=== PATIENT | female | born 1985 | race Two or more races ===

== ENCOUNTER 2016-06-10 11:27 | Emergency (ER) | payer OTHER ==
[~2016-06-10] VITALS: Ht 162.6 cm; Wt 73.5 kg
[~2016-06-10 11:27] MED LIST: ALBU8HFA IH; DILT120C48 PO; FURO80 PO; INSLAN SQ; LINA5TAB PO; METO5TAB95 PO
[2016-06-10 12:01] LABS: GLUCOSE,POINT OF CARE 298 MG/DL (70-110)
[2016-06-10] MEDS ORDERED: ONDANSETRON HCL 4 MG/2 ML VIAL IVP ONE ×2 (12:45→15:30)
[2016-06-10] MEDS ORDERED: SODIUM CHLORIDE 0.9% 1,000 ML IV ONE (12:45)
[2016-06-10] MEDS ORDERED: MORPHINE SULFATE 4 MG/ML SYRINGE IVP ONE ×2 (13:00→14:45)
[2016-06-10 13:08] LABS: BASOPHILS % (AUTO) 0.2 % (0.0-2.0); EOSINOPHILS % (AUTO) 0.1 % (1.0-6.0); HEMATOCRIT 31.8 % (36-46); HEMOGLOBIN 10.4 g/dL (12.0-16.0); LYMPHOCYTES # (AUTO) 1.8 K/uL (1.0-4.8); LYMPHOCYTES % (AUTO) 13.2 % (22.0-44.0); MEAN CORPUSCULAR HEMOGLOBIN 26.4 pg (26.0-34.0); MEAN CORPUSCULAR HGB CONC 32.8 G/dL (31.0-37.0); MEAN CORPUSCULAR VOLUME 81 fL (80-100); MONOCYTES # (AUTO) 0.1 K/uL (0.1-1.0); MONOCYTES % (AUTO) 0.6 % (2.0-9.0); NEUTROPHILS # (AUTO) 11.8 K/uL (1.8-7.7); PLATELET COUNT (AUTO) 541 K/uL (150-450); RED BLOOD CELL COUNT(AUTO) 3.94 MIL/uL (4.00-5.20); RED CELL DISTRIBUTION WIDTH 14.3 % (11.5-14.5); WHITE BLOOD COUNT (AUTO) 13.7 K/uL (4.5-11.0)
[2016-06-10 13:09] LABS: NEUTROPHILS % (AUTO) 85.9 % (40.0-70.0)
[2016-06-10 13:18] LABS: CALCIUM, TOTAL 8.8 mg/dL (8.8-10.5); CREATININE 4.28 mg/dL (0.60-1.30); POTASSIUM 4.3 mmol/L (3.5-5.1)
[2016-06-10 13:24] LABS: ALBUMIN 1.3 g/dL (3.4-5.0); BILIRUBIN,TOTAL 0.2 mg/dL (0.1-1.0); TOTAL PROTEIN, SERUM 6.8 g/dL (6.4-8.2)
[2016-06-10 13:32] LABS: RBC MORPHOLOGY COMMENT NORMAL RBC MORPH
[2016-06-10] MEDS ORDERED: LABETALOL HCL 5 MG/ML 20 ML VIAL IVP ONE (14:00)
[2016-06-10] MEDS ORDERED: SODIUM CHLORIDE 0.9% 500 ML IV ONE (14:45)
[2016-06-10 16:11] LABS: GLUCOSE,POINT OF CARE 331 MG/DL (70-110)
[2016-06-10] MEDS ORDERED: INSULIN REGULAR, HUMAN 100 UNITS/ML IVP ONE (16:15)
[2016-06-10] MEDS ORDERED: METOCLOPRAMIDE HCL 5 MG/ML 2 ML VIAL IVP ONE (17:30)
[2016-06-10 17:40] VITALS: BP 159/89
== END 2016-06-10 18:05 | disposition home or self-care (01) ==
LOC: EMS 11:29
DX: R11.2 Nausea with vomiting, unspecified (principal); E86.0 Dehydration; I10 Essential (primary) hypertension; G89.18 Other acute postprocedural pain; R05 Cough; E11.29 Type 2 diabetes mellitus with other diabetic kidney complication; E11.40 Type 2 diabetes mellitus with diabetic neuropathy, unspecified; N28.9 Disorder of kidney and ureter, unspecified; Z79.4 Long term (current) use of insulin
CPT/HCPCS: 36415; 80053; 82962; 83690; 85025; 93005; 96361; 96374; 96375; 96376; 99285; J1815; J2270; J2405; J2765; J3490; J7030

== ENCOUNTER 2016-06-12 10:08 | Inpatient (IN) | payer OTHER ==
[~2016-06-12] VITALS: Ht 162.6 cm; Wt 129.1 kg
[2016-06-12 10:20] LABS: GLUCOSE,POINT OF CARE 104 MG/DL (70-110)
[2016-06-12] MEDS ORDERED: LISI-660 PO (10:26)
[2016-06-12] MEDS ORDERED: ONDA4 PO (10:26)
[2016-06-12] MEDS ORDERED: FAMOTIDINE 10 MG/ML 2 ML VIAL IVP ONE (10:45)
[2016-06-12] MEDS ORDERED: ONDANSETRON HCL 4 MG/2 ML VIAL IVP ONE (10:45)
[2016-06-12 11:15] LABS: GLUCOSE,POINT OF CARE 44 MG/DL (70-110)
[2016-06-12] MEDS ORDERED: SODIUM CHLORIDE 0.9% 1,000 ML IV ONE (11:15)
[2016-06-12] MEDS ORDERED: DEXTROSE 50%-WATER 25 GM/50 ML SYRINGE IVP ONE ×2 (11:15→13:15)
[2016-06-12 11:19] LABS: BASOPHILS % (AUTO) 0.1 % (0.0-2.0); EOSINOPHILS % (AUTO) 0.7 % (1.0-6.0); HEMATOCRIT 28.6 % (36-46); HEMOGLOBIN 9.5 g/dL (12.0-16.0); LYMPHOCYTES # (AUTO) 2.8 K/uL (1.0-4.8); MEAN CORPUSCULAR HEMOGLOBIN 26.4 pg (26.0-34.0); MEAN CORPUSCULAR HGB CONC 33.1 G/dL (31.0-37.0); MEAN CORPUSCULAR VOLUME 80 fL (80-100); MONOCYTES # (AUTO) 0.3 K/uL (0.1-1.0); MONOCYTES % (AUTO) 2.4 % (2.0-9.0); NEUTROPHILS # (AUTO) 9.5 K/uL (1.8-7.7); NEUTROPHILS % (AUTO) 74.8 % (40.0-70.0); PLATELET COUNT (AUTO) 565 K/uL (150-450); RED BLOOD CELL COUNT(AUTO) 3.58 MIL/uL (4.00-5.20); RED CELL DISTRIBUTION WIDTH 14.4 % (11.5-14.5); WHITE BLOOD COUNT (AUTO) 12.8 K/uL (4.5-11.0)
[2016-06-12 11:29] LABS: PROTHROMBIN TIME 10.3 SEC (9.4-11.6)
[2016-06-12 11:32] LABS: ALBUMIN 1.1 g/dL (3.4-5.0); BILIRUBIN,TOTAL 0.1 mg/dL (0.1-1.0); CALCIUM, TOTAL 8.4 mg/dL (8.8-10.5); CREATININE 4.73 mg/dL (0.60-1.30); POTASSIUM 3.3 mmol/L (3.5-5.1); TOTAL PROTEIN, SERUM 5.9 g/dL (6.4-8.2)
[2016-06-12 12:01] LABS: GLUCOSE,POINT OF CARE 191 MG/DL (70-110)
[2016-06-12 13:01] LABS: GLUCOSE COMMENT 1 Doctor Notified; GLUCOSE,POINT OF CARE 45 MG/DL (70-110)
[2016-06-12 13:36] LABS: GLUCOSE,POINT OF CARE 205 MG/DL (70-110)
[2016-06-12] MEDS ORDERED: MAGNESIUM HYDROXIDE SUSPENSION 30 ML UDCUP PO PRN (13:45)
[2016-06-12] MEDS ORDERED: DEXTROSE 5%-0.9% SODIUM CHL 1,000 ML IV ONE (13:45)
[2016-06-12] MEDS ORDERED: ALBUTEROL SULFATE HFA 90 MCG/PUFF 8 GM INHALER IH PRN (13:45)
[2016-06-12] MEDS ORDERED: ZOLPIDEM TARTRATE 5 MG TABLET PO PRN (13:45)
[2016-06-12] MEDS ORDERED: ONDANSETRON HCL 4 MG/2 ML VIAL IVP PRN (13:45)
[2016-06-12] MEDS ORDERED: BISACODYL 10 MG RECTAL RECTAL SUPPOSITORY PR PRN (13:45)
[2016-06-12] MEDS ORDERED: ACETAMINOPHEN 325 MG TABLET PO PRN (13:45)
[2016-06-12] MEDS: METOCLOPRAMIDE HCL 5 MG/ML 2 ML VIAL IVP SCH ×3 (13:57→23:36)
[2016-06-12 14:04] LABS: GLUCOSE, URINE (UA) 250 mg/dL (NEGATIVE); KETONES,URINE NEGATIVE (NEGATIVE); LEUKOCYTE ESTERASE ,URINE NEGATIVE (NEGATIVE); OCCULT BLOOD,URINE TRACE (NEGATIVE); PROTEIN,URINE SEE CONFIRM (NEGATIVE)
[2016-06-12 14:05] LABS: APPEARANCE,URINE HAZY (CLEAR)
[2016-06-12 14:06] LABS: ADD UA MICROSCOPIC YES
[2016-06-12 14:10] LABS: GLUCOSE,POINT OF CARE 185 MG/DL (70-110)
[2016-06-12 14:21] LABS: RBC,URINE 0-2 /HPF (0-2); SQUAMOUS EPITHELIAL CELL,UR Many /LPF (None Seen); SULFOSALICYLIC ACID,URINE 3+ (Negative)
[2016-06-12] MEDS ORDERED: DIPHENOXYLATE/ATROP 2.5-0.025 MG TABLET PO ONE (14:30)
[2016-06-12 14:46] LABS: GLUCOSE,POINT OF CARE 145 MG/DL (70-110)
[2016-06-12 15:21] VITALS: BP 187/124
[2016-06-12] MEDS: HEPARIN SODIUM,PORCINE 5,000 UNITS/ML VIAL SQ SCH ×2 (16:07→23:36)
[2016-06-12 19:36] VITALS: BP 158/96
[2016-06-12] MEDS: FUROSEMIDE 80 MG TABLET PO SCH (20:26)
[2016-06-12 20:43] LABS: GLUCOSE,POINT OF CARE 163 MG/DL (70-110)
[2016-06-12 20:43] LABS: GLUCOSE,POINT OF CARE 175 MG/DL (70-110)
[2016-06-12 20:43] LABS: GLUCOSE,POINT OF CARE 203 MG/DL (70-110)
[2016-06-12 23:46] VITALS: BP 180/106
[2016-06-13] VITALS (8 sets, daily range): BP systolic 145–184; BP diastolic 91–124
[2016-06-13] MEDS: OxyCODONE HCL/ACETAMINOPHEN 5-325 MG TABLET PO PRN (00:03)
[2016-06-13] MEDS: CloNIDine HCL 0.1 MG TABLET PO PRN ×3 (04:19→20:40)
[2016-06-13] MEDS: METOCLOPRAMIDE HCL 5 MG/ML 2 ML VIAL IVP SCH ×3 (05:45→18:00)
[2016-06-13 06:29] LABS: BASOPHILS # (AUTO) 0.05 K/uL (0.00-0.20); BASOPHILS % (AUTO) 0.5 % (0.0-2.0); EOSINOPHILS # (AUTO) 0.26 K/uL (0.00-0.70); EOSINOPHILS % (AUTO) 2.44 % (1.0-6.0); HEMOGLOBIN 9.3 g/dL (12.0-16.0); LYMPHOCYTES # (AUTO) 4.1 K/uL (1.0-4.8); LYMPHOCYTES % (AUTO) 38.6 % (22.0-44.0); MEAN CORPUSCULAR HEMOGLOBIN 26.7 pg (26.0-34.0); MEAN CORPUSCULAR HGB CONC 33.2 G/dL (31.0-37.0); MEAN CORPUSCULAR VOLUME 81 fL (80-100); MONOCYTES # (AUTO) 0.4 K/uL (0.1-1.0); MONOCYTES % (AUTO) 3.7 % (2.0-9.0); NEUTROPHILS # (AUTO) 5.8 K/uL (1.8-7.7); NEUTROPHILS % (AUTO) 54.8 % (40.0-70.0); PLATELET COUNT (AUTO) 490 K/uL (150-450); RED BLOOD CELL COUNT(AUTO) 3.48 MIL/uL (4.00-5.20); RED CELL DISTRIBUTION WIDTH 14.4 % (11.5-14.5); WHITE BLOOD COUNT (AUTO) 10.5 K/uL (4.5-11.0)
[2016-06-13 06:37] LABS: BILIRUBIN,TOTAL 0.1 mg/dL (0.1-1.0); CALCIUM, TOTAL 7.9 mg/dL (8.8-10.5); CREATININE 4.25 mg/dL (0.60-1.30); POTASSIUM 3.7 mmol/L (3.5-5.1); TOTAL PROTEIN, SERUM 5.4 g/dL (6.4-8.2)
[2016-06-13] MEDS: HEPARIN SODIUM,PORCINE 5,000 UNITS/ML VIAL SQ SCH ×2 (08:37→16:55)
[2016-06-13] MEDS: FUROSEMIDE 80 MG TABLET PO SCH ×2 (08:37→20:39)
[2016-06-13] MEDS: PANTOPRAZOLE SODIUM 40 MG DR TABLET PO SCH (08:37)
[2016-06-13] MEDS: LISINOPRIL 5 MG TABLET PO SCH (08:38)
[2016-06-13] MEDS: CefTRIAXone 1 GM/DEXTROSE 50 ML IV SCH (12:22)
[2016-06-13] MEDS: AZITHROMYCIN 500 MG/NS 250 ML IV SCH (13:07)
[2016-06-13] MEDS ORDERED: 0.9% SODIUM CHLORIDE 10 ML SYRINGE IVP PRN (15:30)
[2016-06-14 04:23] VITALS: BP 163/93
[2016-06-14] MEDS: METOCLOPRAMIDE HCL 5 MG/ML 2 ML VIAL IVP SCH ×5 (05:58→23:43)
[2016-06-14 06:57] LABS: GLUCOSE,POINT OF CARE 202 MG/DL (70-110)
[2016-06-14 06:57] LABS: GLUCOSE,POINT OF CARE 144 MG/DL (70-110)
[2016-06-14 06:57] LABS: GLUCOSE,POINT OF CARE 269 MG/DL (70-110)
[2016-06-14 07:13] VITALS: BP 182/103
[2016-06-14 07:39] LABS: BASOPHILS % (AUTO) 0.5 % (0.0-2.0); EOSINOPHILS % (AUTO) 4.6 % (1.0-6.0); HEMATOCRIT 27.5 % (36-46); HEMOGLOBIN 9.1 g/dL (12.0-16.0); LYMPHOCYTES # (AUTO) 3.9 K/uL (1.0-4.8); LYMPHOCYTES % (AUTO) 42.4 % (22.0-44.0); MEAN CORPUSCULAR HEMOGLOBIN 26.7 pg (26.0-34.0); MEAN CORPUSCULAR HGB CONC 33.1 G/dL (31.0-37.0); MEAN CORPUSCULAR VOLUME 81 fL (80-100); MONOCYTES # (AUTO) 0.4 K/uL (0.1-1.0); MONOCYTES % (AUTO) 4.1 % (2.0-9.0); NEUTROPHILS # (AUTO) 4.4 K/uL (1.8-7.7); NEUTROPHILS % (AUTO) 48.4 % (40.0-70.0); PLATELET COUNT (AUTO) 470 K/uL (150-450); RED BLOOD CELL COUNT(AUTO) 3.41 MIL/uL (4.00-5.20); RED CELL DISTRIBUTION WIDTH 13.9 % (11.5-14.5); WHITE BLOOD COUNT (AUTO) 9.1 K/uL (4.5-11.0)
[2016-06-14] MEDS: FUROSEMIDE 80 MG TABLET PO SCH ×2 (07:52→20:20)
[2016-06-14] MEDS: LISINOPRIL 5 MG TABLET PO SCH (07:52)
[2016-06-14] MEDS: PANTOPRAZOLE SODIUM 40 MG DR TABLET PO SCH (07:52)
[2016-06-14] MEDS: CloNIDine HCL 0.1 MG TABLET PO PRN ×2 (07:52→15:31)
[2016-06-14] MEDS: HEPARIN SODIUM,PORCINE 5,000 UNITS/ML VIAL SQ SCH ×4 (07:53→23:46)
[2016-06-14 08:08] LABS: BILIRUBIN,TOTAL 0.1 mg/dL (0.1-1.0); CALCIUM, TOTAL 7.9 mg/dL (8.8-10.5); CREATININE 4.64 mg/dL (0.60-1.30); MAGNESIUM 1.6 mg/dL (1.80-2.40); PHOSPHORUS 4.7 mg/dL (2.5-4.9); POTASSIUM 3.7 mmol/L (3.5-5.1); TOTAL PROTEIN, SERUM 5.2 g/dL (6.4-8.2)
[2016-06-14 11:11] VITALS: BP 116/79
[2016-06-14] MEDS: CefTRIAXone 1 GM/DEXTROSE 50 ML IV SCH (12:19)
[2016-06-14] MEDS: AZITHROMYCIN 500 MG/NS 250 ML IV SCH (13:24)
[2016-06-14 15:07] VITALS: BP 150/106
[2016-06-14 17:36] LABS: GLUCOSE,POINT OF CARE 255 MG/DL (70-110)
[2016-06-14 19:31] VITALS: BP 164/101
[2016-06-14] MEDS: OxyCODONE HCL/ACETAMINOPHEN 5-325 MG TABLET PO PRN (20:26)
[2016-06-14 23:51] VITALS: BP 146/87
[2016-06-15 04:22] VITALS: BP 166/98
[2016-06-15] MEDS: CloNIDine HCL 0.1 MG TABLET PO PRN ×2 (04:25→12:52)
[2016-06-15] MEDS: METOCLOPRAMIDE HCL 5 MG/ML 2 ML VIAL IVP SCH ×3 (05:08→18:00)
[2016-06-15 06:23] LABS: BASOPHILS # (AUTO) 0.03 K/uL (0.00-0.20); BASOPHILS % (AUTO) 0.3 % (0.0-2.0); EOSINOPHILS # (AUTO) 0.36 K/uL (0.00-0.70); EOSINOPHILS % (AUTO) 4.35 % (1.0-6.0); HEMATOCRIT 24.6 % (36-46); HEMOGLOBIN 8.3 g/dL (12.0-16.0); LYMPHOCYTES # (AUTO) 4.1 K/uL (1.0-4.8); LYMPHOCYTES % (AUTO) 49.2 % (22.0-44.0); MEAN CORPUSCULAR HEMOGLOBIN 26.9 pg (26.0-34.0); MEAN CORPUSCULAR HGB CONC 33.6 G/dL (31.0-37.0); MEAN CORPUSCULAR VOLUME 80 fL (80-100); MONOCYTES # (AUTO) 0.2 K/uL (0.1-1.0); MONOCYTES % (AUTO) 2.8 % (2.0-9.0); NEUTROPHILS # (AUTO) 3.6 K/uL (1.8-7.7); NEUTROPHILS % (AUTO) 43.4 % (40.0-70.0); PLATELET COUNT (AUTO) 431 K/uL (150-450); RED BLOOD CELL COUNT(AUTO) 3.06 MIL/uL (4.00-5.20); RED CELL DISTRIBUTION WIDTH 14.3 % (11.5-14.5); WHITE BLOOD COUNT (AUTO) 8.3 K/uL (4.5-11.0)
[2016-06-15 06:59] VITALS: BP 187/103
[2016-06-15 07:19] LABS: BILIRUBIN,TOTAL 0.1 mg/dL (0.1-1.0); CALCIUM, TOTAL 7.9 mg/dL (8.8-10.5); CREATININE 4.47 mg/dL (0.60-1.30); POTASSIUM 3.6 mmol/L (3.5-5.1)
[2016-06-15] MEDS: PANTOPRAZOLE SODIUM 40 MG DR TABLET PO SCH (08:43)
[2016-06-15] MEDS: LISINOPRIL 5 MG TABLET PO SCH (08:43)
[2016-06-15] MEDS: FUROSEMIDE 80 MG TABLET PO SCH ×2 (08:44→20:42)
[2016-06-15] MEDS: HEPARIN SODIUM,PORCINE 5,000 UNITS/ML VIAL SQ SCH ×2 (08:47→15:09)
[2016-06-15] MEDS ORDERED: LISINOPRIL 10 MG TABLET PO SCH (09:45)
[2016-06-15] MEDS: LinaGLIPtin 5 MG TABLET PO SCH (11:25)
[2016-06-15] MEDS: CefTRIAXone 1 GM/DEXTROSE 50 ML IV SCH (11:25)
[2016-06-15 11:31] VITALS: BP 161/107
[2016-06-15 11:55] LABS: MAGNESIUM 1.7 mg/dL (1.80-2.40)
[2016-06-15] MEDS: AZITHROMYCIN 500 MG/NS 250 ML IV SCH (15:09)
[2016-06-15 15:23] VITALS: BP 167/97
[2016-06-15 16:52] VITALS: BP 141/78
[2016-06-15] MEDS ORDERED: EPOETIN ALFA 10,000 UNITS/ML VIAL SQ ONE (17:00)
[2016-06-15] MEDS ORDERED: MAGNESIUM SULFATE 2 GM in DEXTROSE 5%-WATER 50 ML IV ONE (19:15)
[2016-06-15 19:18] VITALS: BP 164/107
[2016-06-15 20:01] LABS: GLUCOSE,POINT OF CARE 242 MG/DL (70-110)
[2016-06-15 20:06] LABS: GLUCOSE COMMENT 1 Received Meds; GLUCOSE,POINT OF CARE 256 MG/DL (70-110)
[2016-06-15 20:06] LABS: GLUCOSE COMMENT 1 Received Meds; GLUCOSE,POINT OF CARE 247 MG/DL (70-110)
[2016-06-15 20:06] LABS: GLUCOSE COMMENT 1 Received Meds; GLUCOSE,POINT OF CARE 262 MG/DL (70-110)
[2016-06-15 20:07] LABS: GLUCOSE,POINT OF CARE 224 MG/DL (70-110)
[2016-06-15 20:07] LABS: GLUCOSE,POINT OF CARE 288 MG/DL (70-110)
[2016-06-15 20:07] LABS: GLUCOSE,POINT OF CARE 275 MG/DL (70-110)
[2016-06-15 20:07] LABS: GLUCOSE,POINT OF CARE 275 MG/DL (70-110)
[2016-06-16 00:02] VITALS: BP 141/84
[2016-06-16 03:51] VITALS: BP 158/97
[2016-06-16] MEDS: METOCLOPRAMIDE HCL 5 MG/ML 2 ML VIAL IVP SCH ×3 (05:48→12:00)
[2016-06-16 06:27] LABS: BASOPHILS % (AUTO) 0.5 % (0.0-2.0); EOSINOPHILS % (AUTO) 3.4 % (1.0-6.0); HEMATOCRIT 29.2 % (36-46); HEMOGLOBIN 9.4 g/dL (12.0-16.0); LYMPHOCYTES # (AUTO) 3.7 K/uL (1.0-4.8); LYMPHOCYTES % (AUTO) 39.4 % (22.0-44.0); MEAN CORPUSCULAR HEMOGLOBIN 26.1 pg (26.0-34.0); MEAN CORPUSCULAR HGB CONC 32.3 G/dL (31.0-37.0); MEAN CORPUSCULAR VOLUME 81 fL (80-100); MONOCYTES # (AUTO) 0.3 K/uL (0.1-1.0); MONOCYTES % (AUTO) 2.7 % (2.0-9.0); NEUTROPHILS # (AUTO) 5.1 K/uL (1.8-7.7); PLATELET COUNT (AUTO) 436 K/uL (150-450); RED BLOOD CELL COUNT(AUTO) 3.61 MIL/uL (4.00-5.20); RED CELL DISTRIBUTION WIDTH 13.9 % (11.5-14.5); WHITE BLOOD COUNT (AUTO) 9.4 K/uL (4.5-11.0)
[2016-06-16 07:12] VITALS: BP 138/91
[2016-06-16 07:31] LABS: BILIRUBIN,TOTAL 0.2 mg/dL (0.1-1.0); CALCIUM, TOTAL 8.3 mg/dL (8.8-10.5); CREATININE 4.36 mg/dL (0.60-1.30); MAGNESIUM 2.2 mg/dL (1.80-2.40); PHOSPHORUS 5.1 mg/dL (2.5-4.9); POTASSIUM 3.8 mmol/L (3.5-5.1); TOTAL PROTEIN, SERUM 5.3 g/dL (6.4-8.2)
[2016-06-16] MEDS: PANTOPRAZOLE SODIUM 40 MG DR TABLET PO SCH (08:48)
[2016-06-16] MEDS: LinaGLIPtin 5 MG TABLET PO SCH (08:48)
[2016-06-16] MEDS: FUROSEMIDE 80 MG TABLET PO SCH (08:48)
[2016-06-16] MEDS: HEPARIN SODIUM,PORCINE 5,000 UNITS/ML VIAL SQ SCH ×2 (08:50)
[2016-06-16] MEDS ORDERED: DILTIAZEM HCL CD 120 MG ER CAPSULE PO SCH (09:00)
[2016-06-16] MEDS ORDERED: CHOL100034 PO (10:45)
[2016-06-16] MEDS ORDERED: AMOX1TAB16 PO (10:45)
[2016-06-16] MEDS ORDERED: PHOSLOC PO (10:45)
[2016-06-16] MEDS ORDERED: DILT120C89 PO (10:45)
[2016-06-16 11:46] VITALS: BP 135/95
[2016-06-16] MEDS: CefTRIAXone 1 GM/DEXTROSE 50 ML IV SCH (12:44)
[2016-06-16] MEDS: AZITHROMYCIN 500 MG/NS 250 ML IV SCH (14:03)
[2016-06-16 19:56] LABS: GLUCOSE,POINT OF CARE 244 MG/DL (70-110)
[2016-06-16 19:56] LABS: GLUCOSE COMMENT 1 Received Meds; GLUCOSE,POINT OF CARE 246 MG/DL (70-110)
[2016-06-17 07:05] LABS: GLUCOSE,POINT OF CARE 250 MG/DL (70-110)
== END 2016-06-16 15:35 | disposition home or self-care (01) | DRG 720 ==
LOC: EMS 10:09 → 5N 14:32
PROVIDERS: ADMIT Hospitalist; ATTEND Hospitalist
DX: A41.9 Sepsis, unspecified organism (principal); G93.41 Metabolic encephalopathy; N17.9 Acute kidney failure, unspecified; J18.9 Pneumonia, unspecified organism; E11.22 Type 2 diabetes mellitus with diabetic chronic kidney disease; N18.4 Chronic kidney disease, stage 4 (severe); E11.42 Type 2 diabetes mellitus with diabetic polyneuropathy; K31.84 Gastroparesis; E11.649 Type 2 diabetes mellitus with hypoglycemia without coma; E66.9 Obesity, unspecified; D50.9 Iron deficiency anemia, unspecified; D63.1 Anemia in chronic kidney disease; E78.5 Hyperlipidemia, unspecified; I12.9 Hypertensive chronic kidney disease with stage 1 through stage 4 chronic kidney disease, or unspecified chronic kidney disease; E11.319 Type 2 diabetes mellitus with unspecified diabetic retinopathy without macular edema; E11.43 Type 2 diabetes mellitus with diabetic autonomic (poly)neuropathy; Z87.441 Personal history of nephrotic syndrome; Z79.899 Other long term (current) drug therapy; Z98.890 Other specified postprocedural states; Z90.49 Acquired absence of other specified parts of digestive tract; Z83.3 Family history of diabetes mellitus
CPT/HCPCS: 82306; 82728; 82962; 83036; 83540; 83550; 83735; 83970; 84100; 86850; 86900; 86901; 93005; 96361; 96374; 96375; 96376; 99285; J0456; J0696; J0885; J1644; J2405; J2765; J3475; J3490; J3535; J7030; J7042; J7060

== ENCOUNTER 2016-06-17 09:09 | Inpatient (IN) | payer OTHER ==
[~2016-06-17] VITALS: Ht 162.6 cm; Wt 74.1 kg
[~2016-06-17 09:09] MED LIST changes: +AMOX1TAB16 PO; +CHOL100034 PO; -DILT120C48 PO; +DILT120C89 PO; +ONDA4 PO; +PHOSLOC PO
[2016-06-17 09:51] LABS: GLUCOSE,POINT OF CARE 65 MG/DL (70-110)
[2016-06-17 09:58] LABS: BASOPHILS % (AUTO) 0.3 % (0.0-2.0); EOSINOPHILS % (AUTO) 0.6 % (1.0-6.0); HEMATOCRIT 32.2 % (36-46); HEMOGLOBIN 10.5 g/dL (12.0-16.0); LYMPHOCYTES # (AUTO) 3.4 K/uL (1.0-4.8); LYMPHOCYTES % (AUTO) 28.9 % (22.0-44.0); MEAN CORPUSCULAR HGB CONC 32.6 G/dL (31.0-37.0); MEAN CORPUSCULAR VOLUME 80 fL (80-100); MONOCYTES # (AUTO) 0.1 K/uL (0.1-1.0); MONOCYTES % (AUTO) 0.7 % (2.0-9.0); NEUTROPHILS # (AUTO) 8.2 K/uL (1.8-7.7); NEUTROPHILS % (AUTO) 69.5 % (40.0-70.0); PLATELET COUNT (AUTO) 443 K/uL (150-450); RED BLOOD CELL COUNT(AUTO) 4.05 MIL/uL (4.00-5.20); RED CELL DISTRIBUTION WIDTH 13.8 % (11.5-14.5); WHITE BLOOD COUNT (AUTO) 11.8 K/uL (4.5-11.0)
[2016-06-17 10:06] LABS: GLUCOSE,POINT OF CARE 109 MG/DL (70-110)
[2016-06-17 10:10] LABS: CREATININE 4.62 mg/dL (0.60-1.30); POTASSIUM 3.3 mmol/L (3.5-5.1)
[2016-06-17 10:15] LABS: APPEARANCE,URINE CLEAR (CLEAR); GLUCOSE, URINE (UA) 500 mg/dL (NEGATIVE); KETONES,URINE NEGATIVE (NEGATIVE); LEUKOCYTE ESTERASE ,URINE NEGATIVE (NEGATIVE); OCCULT BLOOD,URINE SMALL (NEGATIVE); PH,URINE 6.5 (5.0-8.0)
[2016-06-17 10:15] LABS: ALBUMIN 1.4 g/dL (3.4-5.0); BILIRUBIN,TOTAL 0.1 mg/dL (0.1-1.0); TOTAL PROTEIN, SERUM 6.3 g/dL (6.4-8.2)
[2016-06-17] MEDS ORDERED: DEXTROSE 50%-WATER 25 GM/50 ML SYRINGE IVP ONE ×3 (10:15→14:23)
[2016-06-17 10:16] LABS: GLUCOSE COMMENT 1 Repeated; GLUCOSE,POINT OF CARE 48 MG/DL (70-110)
[2016-06-17 10:23] LABS: PROTEIN,URINE POS 1+ (NEGATIVE)
[2016-06-17 10:27] LABS: RBC,URINE 0-2 /HPF (0-2); SQUAMOUS EPITHELIAL CELL,UR Moderate /LPF (None Seen); WBC,URINE None Seen /HPF (0-5)
[2016-06-17 10:41] LABS: GLUCOSE,POINT OF CARE 104 MG/DL (70-110)
[2016-06-17] MEDS ORDERED: ONDANSETRON HCL 4 MG/2 ML VIAL IVP ONE ×2 (10:45→16:15)
[2016-06-17 11:32] LABS: GLUCOSE,POINT OF CARE 38 MG/DL (70-110)
[2016-06-17] MEDS ORDERED: DEXTROSE 5%-WATER 1,000 ML IV ONE (11:45)
[2016-06-17] MEDS ORDERED: MORPHINE SULFATE 4 MG/ML SYRINGE IVP ONE (12:00)
[2016-06-17] MEDS ORDERED: METOCLOPRAMIDE HCL 5 MG/ML 2 ML VIAL IVP ONE (12:00)
[2016-06-17 13:36] LABS: GLUCOSE,POINT OF CARE 77 MG/DL (70-110)
[2016-06-17 15:56] LABS: GLUCOSE,POINT OF CARE 107 MG/DL (70-110)
[2016-06-17] MEDS ORDERED: POTASSIUM CHLORIDE 20 MEQ ER TABLET PO ONE (16:15)
[2016-06-17] MEDS ORDERED: BISACODYL 10 MG RECTAL RECTAL SUPPOSITORY PR PRN (16:45)
[2016-06-17] MEDS ORDERED: MORPHINE SULFATE 2 MG/ML SYRINGE IVP PRN (16:45)
[2016-06-17] MEDS ORDERED: ZOLPIDEM TARTRATE 5 MG TABLET PO PRN (16:45)
[2016-06-17] MEDS ORDERED: MAGNESIUM HYDROXIDE SUSPENSION 30 ML UDCUP PO PRN (16:45)
[2016-06-17] MEDS ORDERED: ACETAMINOPHEN 325 MG TABLET PO PRN (16:45)
[2016-06-17] MEDS ORDERED: ALBUTEROL SULFATE HFA 90 MCG/PUFF 8 GM INHALER IH PRN (16:45)
[2016-06-17] MEDS: HydrALAZINE HCL 20 MG/ML VIAL IVP PRN (16:55)
[2016-06-17] MEDS: DEXTROSE 5%-0.9% SODIUM CHL 1,000 ML IV SCH (16:56)
[2016-06-17] MEDS: CALCIUM ACETATE 667 MG CAPSULE PO SCH (18:00)
[2016-06-17 18:11] VITALS: BP 184/105
[2016-06-17 19:45] VITALS: BP 125/66
[2016-06-17 19:46] LABS: GLUCOSE,POINT OF CARE 118 MG/DL (70-110)
[2016-06-17] MEDS: ONDANSETRON HCL 4 MG/2 ML VIAL IVP PRN (21:02)
[2016-06-17] MEDS: DOCUSATE SODIUM 100 MG CAPSULE PO SCH (21:07)
[2016-06-17] MEDS: AMOX TR/POT CLAV 875 MG/125 MG TABLET PO SCH (21:07)
[2016-06-17] MEDS: FUROSEMIDE 80 MG TABLET PO SCH (21:07)
[2016-06-17] MEDS: METOCLOPRAMIDE HCL 5 MG TABLET PO SCH (21:07)
[2016-06-17 23:46] VITALS: BP 133/94
[2016-06-18 05:00] VITALS: BP 136/86
[2016-06-18] MEDS: ONDANSETRON HCL 4 MG/2 ML VIAL IVP PRN (05:27)
[2016-06-18 07:32] LABS: GLUCOSE,POINT OF CARE 202 MG/DL (70-110)
[2016-06-18 08:20] VITALS: BP 157/99
[2016-06-18] MEDS: AMOX TR/POT CLAV 875 MG/125 MG TABLET PO SCH (08:31)
[2016-06-18] MEDS: FUROSEMIDE 80 MG TABLET PO SCH ×2 (08:31→20:27)
[2016-06-18] MEDS: HEPARIN SODIUM,PORCINE 5,000 UNITS/ML VIAL SQ SCH ×4 (08:31→23:28)
[2016-06-18] MEDS: DILTIAZEM HCL CD 120 MG ER CAPSULE PO SCH (08:31)
[2016-06-18] MEDS: CHOLECALCIFEROL (VIT D3) 1,000 UNITS TABLET PO SCH (08:32)
[2016-06-18] MEDS: HYDROCODONE/ACETAMINOPHEN 5-325 MG TABLET PO PRN (08:32)
[2016-06-18] MEDS: METOCLOPRAMIDE HCL 5 MG TABLET PO SCH ×3 (08:32→20:27)
[2016-06-18] MEDS: PANTOPRAZOLE SODIUM 40 MG DR TABLET PO SCH (08:32)
[2016-06-18] MEDS: CALCIUM ACETATE 667 MG CAPSULE PO SCH ×2 (08:32→17:06)
[2016-06-18] MEDS: DOCUSATE SODIUM 100 MG CAPSULE PO SCH ×2 (08:32→20:27)
[2016-06-18] MEDS: DEXTROSE 5%-0.9% SODIUM CHL 1,000 ML IV SCH (08:33)
[2016-06-18 10:02] LABS: GLUCOSE,POINT OF CARE 133 MG/DL (70-110)
[2016-06-18 10:02] LABS: GLUCOSE,POINT OF CARE 76 MG/DL (70-110)
[2016-06-18 11:47] LABS: GLUCOSE,POINT OF CARE 250 MG/DL (70-110)
[2016-06-18 11:49] VITALS: BP 145/90
[2016-06-18] MEDS: METOCLOPRAMIDE HCL 5 MG/ML 2 ML VIAL IVP SCH ×3 (11:53→23:28)
[2016-06-18 16:06] VITALS: BP 152/89
[2016-06-18 19:11] LABS: GLUCOSE,POINT OF CARE 280 MG/DL (70-110)
[2016-06-18 19:34] VITALS: BP 154/94
[2016-06-18] MEDS: AMOX TR/POT CLAV 500 MG/125 MG TABLET PO SCH (20:27)
[2016-06-18 21:51] LABS: GLUCOSE,POINT OF CARE 281 MG/DL (70-110)
[2016-06-18 23:16] VITALS: BP 139/81
[2016-06-19 04:20] VITALS: BP 156/91
[2016-06-19] MEDS: METOCLOPRAMIDE HCL 5 MG/ML 2 ML VIAL IVP SCH ×3 (05:57→17:54)
[2016-06-19 06:12] LABS: GLUCOSE,POINT OF CARE 265 MG/DL (70-110)
[2016-06-19 06:53] LABS: CALCIUM, TOTAL 8.5 mg/dL (8.8-10.5); CREATININE 4.55 mg/dL (0.60-1.30); POTASSIUM 3.7 mmol/L (3.5-5.1)
[2016-06-19 08:11] VITALS: BP 145/99
[2016-06-19] MEDS: PANTOPRAZOLE SODIUM 40 MG DR TABLET PO SCH (09:30)
[2016-06-19] MEDS: DOCUSATE SODIUM 100 MG CAPSULE PO SCH ×2 (09:30→20:43)
[2016-06-19] MEDS: CHOLECALCIFEROL (VIT D3) 1,000 UNITS TABLET PO SCH (09:30)
[2016-06-19] MEDS: AMOX TR/POT CLAV 500 MG/125 MG TABLET PO SCH ×2 (09:30→20:43)
[2016-06-19] MEDS: CALCIUM ACETATE 667 MG CAPSULE PO SCH ×2 (09:30→17:56)
[2016-06-19] MEDS: HEPARIN SODIUM,PORCINE 5,000 UNITS/ML VIAL SQ SCH ×2 (09:30→16:50)
[2016-06-19] MEDS: DILTIAZEM HCL CD 120 MG ER CAPSULE PO SCH (09:31)
[2016-06-19] MEDS: METOCLOPRAMIDE HCL 5 MG TABLET PO SCH (09:31)
[2016-06-19] MEDS: FUROSEMIDE 80 MG TABLET PO SCH (09:31)
[2016-06-19] MEDS: ONDANSETRON HCL 4 MG/2 ML VIAL IVP PRN ×2 (09:34→20:45)
[2016-06-19 11:00] VITALS: BP 183/96
[2016-06-19] MEDS: HydrALAZINE HCL 20 MG/ML VIAL IVP PRN (11:05)
[2016-06-19 13:17] LABS: GLUCOSE COMMENT 1 Doctor Notified; GLUCOSE,POINT OF CARE 336 MG/DL (70-110)
[2016-06-19 15:20] VITALS: BP 168/97
[2016-06-19] MEDS ORDERED: DEXTROSE 50%-WATER 25 GM/50 ML SYRINGE IVP PRN (15:30)
[2016-06-19] MEDS: HYDROCODONE/ACETAMINOPHEN 5-325 MG TABLET PO PRN (17:54)
[2016-06-19] MEDS: INSULIN ASPART 100 UNITS/ML SQ PRN ×2 (17:55→20:59)
[2016-06-19] MEDS: SODIUM CHLORIDE 0.9% 1,000 ML IV SCH (17:56)
[2016-06-19 18:17] LABS: GLUCOSE COMMENT 1 Received Meds; GLUCOSE,POINT OF CARE 278 MG/DL (70-110)
[2016-06-19 19:24] VITALS: BP 149/91
[2016-06-19 20:57] LABS: GLUCOSE COMMENT 1 Received Meds; GLUCOSE,POINT OF CARE 201 MG/DL (70-110)
[2016-06-19 23:22] VITALS: BP 145/89
[2016-06-20] MEDS: HEPARIN SODIUM,PORCINE 5,000 UNITS/ML VIAL SQ SCH ×4 (00:01→23:13)
[2016-06-20] MEDS: METOCLOPRAMIDE HCL 5 MG/ML 2 ML VIAL IVP SCH ×5 (00:02→23:13)
[2016-06-20 04:38] VITALS: BP 140/85
[2016-06-20] MEDS: INSULIN ASPART 100 UNITS/ML SQ PRN ×4 (06:06→20:01)
[2016-06-20 06:55] LABS: CALCIUM, TOTAL 8.2 mg/dL (8.8-10.5); CREATININE 4.3 mg/dL (0.60-1.30); POTASSIUM 3.6 mmol/L (3.5-5.1)
[2016-06-20 07:12] LABS: GLUCOSE COMMENT 1 Received Meds; GLUCOSE,POINT OF CARE 205 MG/DL (70-110)
[2016-06-20 07:55] VITALS: BP 151/86
[2016-06-20] MEDS: CALCIUM ACETATE 667 MG CAPSULE PO SCH ×3 (08:00→17:58)
[2016-06-20] MEDS: CHOLECALCIFEROL (VIT D3) 1,000 UNITS TABLET PO SCH (08:30)
[2016-06-20] MEDS: AMOX TR/POT CLAV 500 MG/125 MG TABLET PO SCH ×3 (08:30→20:01)
[2016-06-20] MEDS: PANTOPRAZOLE SODIUM 40 MG DR TABLET PO SCH (08:30)
[2016-06-20] MEDS: DOCUSATE SODIUM 100 MG CAPSULE PO SCH ×3 (08:30→20:05)
[2016-06-20] MEDS: SODIUM CHLORIDE 0.9% 1,000 ML IV SCH ×2 (08:30→23:14)
[2016-06-20] MEDS: DILTIAZEM HCL CD 120 MG ER CAPSULE PO SCH (08:30)
[2016-06-20 11:54] VITALS: BP 166/108
[2016-06-20 15:19] VITALS: BP 144/106
[2016-06-20] MEDS: ONDANSETRON HCL 4 MG/2 ML VIAL IVP PRN (15:36)
[2016-06-20 16:16] LABS: GLUCOSE,POINT OF CARE 209 MG/DL (70-110)
[2016-06-20 19:29] VITALS: BP 151/88
[2016-06-20] MEDS: INSULIN DETEMIR 100 UNITS/ML SQ SCH (20:05)
[2016-06-20 20:57] LABS: GLUCOSE COMMENT 1 Received Meds; GLUCOSE,POINT OF CARE 277 MG/DL (70-110)
[2016-06-20 20:57] LABS: GLUCOSE COMMENT 1 Received Meds; GLUCOSE,POINT OF CARE 164 MG/DL (70-110)
[2016-06-21 00:07] VITALS: BP 141/86
[2016-06-21 04:23] VITALS: BP 162/99
[2016-06-21] MEDS: METOCLOPRAMIDE HCL 5 MG/ML 2 ML VIAL IVP SCH ×2 (05:38→12:00)
[2016-06-21] MEDS: INSULIN ASPART 100 UNITS/ML SQ PRN ×2 (05:38→12:30)
[2016-06-21 06:16] LABS: BASOPHILS # (AUTO) 0.14 K/uL (0.00-0.20); BASOPHILS % (AUTO) 1.2 % (0.0-2.0); EOSINOPHILS # (AUTO) 0.24 K/uL (0.00-0.70); EOSINOPHILS % (AUTO) 2.14 % (1.0-6.0); HEMATOCRIT 29.3 % (36-46); HEMOGLOBIN 9.9 g/dL (12.0-16.0); LYMPHOCYTES # (AUTO) 5.1 K/uL (1.0-4.8); MEAN CORPUSCULAR HEMOGLOBIN 26.9 pg (26.0-34.0); MEAN CORPUSCULAR HGB CONC 33.7 G/dL (31.0-37.0); MEAN CORPUSCULAR VOLUME 80 fL (80-100); MONOCYTES # (AUTO) 0.4 K/uL (0.1-1.0); MONOCYTES % (AUTO) 3.7 % (2.0-9.0); NEUTROPHILS # (AUTO) 5.5 K/uL (1.8-7.7); PLATELET COUNT (AUTO) 392 K/uL (150-450); RED BLOOD CELL COUNT(AUTO) 3.67 MIL/uL (4.00-5.20); RED CELL DISTRIBUTION WIDTH 15.2 % (11.5-14.5); WHITE BLOOD COUNT (AUTO) 11.4 K/uL (4.5-11.0)
[2016-06-21 06:56] LABS: CREATININE 3.99 mg/dL (0.60-1.30); MAGNESIUM 1.7 mg/dL (1.80-2.40); PHOSPHORUS 4.4 mg/dL (2.5-4.9); POTASSIUM 3.6 mmol/L (3.5-5.1)
[2016-06-21 07:12] LABS: GLUCOSE COMMENT 1 Received Meds; GLUCOSE,POINT OF CARE 145 MG/DL (70-110)
[2016-06-21 07:30] VITALS: BP 158/100
[2016-06-21] MEDS: CALCIUM ACETATE 667 MG CAPSULE PO SCH ×2 (08:00→08:12)
[2016-06-21] MEDS: DOCUSATE SODIUM 100 MG CAPSULE PO SCH (08:12)
[2016-06-21] MEDS: AMOX TR/POT CLAV 500 MG/125 MG TABLET PO SCH (08:12)
[2016-06-21] MEDS: HEPARIN SODIUM,PORCINE 5,000 UNITS/ML VIAL SQ SCH (08:12)
[2016-06-21] MEDS: CHOLECALCIFEROL (VIT D3) 1,000 UNITS TABLET PO SCH (08:12)
[2016-06-21] MEDS: PANTOPRAZOLE SODIUM 40 MG DR TABLET PO SCH (08:12)
[2016-06-21] MEDS: DILTIAZEM HCL CD 120 MG ER CAPSULE PO SCH (08:12)
[2016-06-21] MEDS: INSULIN DETEMIR 100 UNITS/ML SQ SCH (09:16)
[2016-06-21] MEDS ORDERED: ONDANSETRON HCL 4 MG/2 ML VIAL IVP PRN (10:30)
[2016-06-21 11:29] VITALS: BP 141/98
[2016-06-21 11:52] LABS: GLUCOSE,POINT OF CARE 146 MG/DL (70-110)
[2016-06-21] MEDS ORDERED: PHOSLOC PO (14:30)
[2016-06-21] MEDS ORDERED: VITAD1000 PO (14:30)
[2016-06-21] MEDS ORDERED: METO5TAB95 PO (14:31)
[2016-06-21] MEDS ORDERED: INSU100V12 SQ (14:32)
== END 2016-06-21 15:00 | disposition home or self-care (01) | DRG 48 ==
LOC: EMS 09:11 → 6N 15:41
PROVIDERS: ADMIT Internal Medicine; ATTEND Internal Medicine
DX: E11.43 Type 2 diabetes mellitus with diabetic autonomic (poly)neuropathy (principal); E43 Unspecified severe protein-calorie malnutrition; E11.21 Type 2 diabetes mellitus with diabetic nephropathy; E11.649 Type 2 diabetes mellitus with hypoglycemia without coma; N17.9 Acute kidney failure, unspecified; N18.3 Chronic kidney disease, stage 3 (moderate); K31.84 Gastroparesis; E87.1 Hypo-osmolality and hyponatremia; I12.9 Hypertensive chronic kidney disease with stage 1 through stage 4 chronic kidney disease, or unspecified chronic kidney disease; E11.22 Type 2 diabetes mellitus with diabetic chronic kidney disease; D63.1 Anemia in chronic kidney disease; E11.319 Type 2 diabetes mellitus with unspecified diabetic retinopathy without macular edema; Z68.28 Body mass index [BMI] 28.0-28.9, adult; Z79.899 Other long term (current) drug therapy; Z98.890 Other specified postprocedural states; Z90.49 Acquired absence of other specified parts of digestive tract; Z83.3 Family history of diabetes mellitus
CPT/HCPCS: 81025; 82570; 82962; 83036; 83735; 84100; 84156; 84300; 84540; 87081; 93970; 96361; 96374; 96375; 96376; 99285; J0360; J1644; J2270; J2405; J2765; J3535; J7030; J7042; J7060

== ENCOUNTER 2016-06-29 09:03 | Inpatient (IN) | payer OTHER ==
[~2016-06-29] VITALS: Ht 162.6 cm; Wt 70.4 kg
[~2016-06-29 09:03] MED LIST changes: -AMOX1TAB16 PO; -FURO80 PO; -INSLAN SQ; +INSU100V12 SQ; -LINA5TAB PO; +VITAD1000 PO
[2016-06-29] MEDS ORDERED: DEXTROSE 50%-WATER 25 GM/50 ML SYRINGE IVP ONE (09:15)
[2016-06-29] MEDS ORDERED: GLUCAGON,HUMAN RECOMBINANT 1 MG VIAL ONE (09:38)
[2016-06-29] MEDS ORDERED: GLUCAGON,HUMAN RECOMBINANT 1 MG VIAL IM ONE (09:45)
[2016-06-29 09:52] LABS: GLUCOSE,POINT OF CARE 21 MG/DL (70-110)
[2016-06-29 10:31] LABS: GLUCOSE,POINT OF CARE 105 MG/DL (70-110)
[2016-06-29 10:36] LABS: GLUCOSE,POINT OF CARE 93 MG/DL (70-110)
[2016-06-29 11:02] LABS: GLUCOSE,POINT OF CARE 93 MG/DL (70-110)
[2016-06-29 11:31] LABS: BASOPHILS # (AUTO) 0.04 K/uL (0.00-0.20); BASOPHILS % (AUTO) 0.4 % (0.0-2.0); EOSINOPHILS # (AUTO) 0.12 K/uL (0.00-0.70); EOSINOPHILS % (AUTO) 1.31 % (1.0-6.0); HEMATOCRIT 34.9 % (36-46); HEMOGLOBIN 11.2 g/dL (12.0-16.0); LYMPHOCYTES # (AUTO) 1.6 K/uL (1.0-4.8); LYMPHOCYTES % (AUTO) 17.3 % (22.0-44.0); MEAN CORPUSCULAR HEMOGLOBIN 26.9 pg (26.0-34.0); MEAN CORPUSCULAR HGB CONC 32.2 G/dL (31.0-37.0); MEAN CORPUSCULAR VOLUME 84 fL (80-100); MONOCYTES # (AUTO) 0.3 K/uL (0.1-1.0); MONOCYTES % (AUTO) 3.6 % (2.0-9.0); NEUTROPHILS # (AUTO) 7.1 K/uL (1.8-7.7); NEUTROPHILS % (AUTO) 77.3 % (40.0-70.0); PLATELET COUNT (AUTO) 304 K/uL (150-450); RED BLOOD CELL COUNT(AUTO) 4.17 MIL/uL (4.00-5.20); RED CELL DISTRIBUTION WIDTH 16.6 % (11.5-14.5); WHITE BLOOD COUNT (AUTO) 9.2 K/uL (4.5-11.0)
[2016-06-29 11:39] LABS: CALCIUM, TOTAL 8.8 mg/dL (8.8-10.5); CREATININE 4.31 mg/dL (0.60-1.30); POTASSIUM 4.8 mmol/L (3.5-5.1)
[2016-06-29 11:45] LABS: ALBUMIN 1.4 g/dL (3.4-5.0); BILIRUBIN,TOTAL 0.3 mg/dL (0.1-1.0); TOTAL PROTEIN, SERUM 5.9 g/dL (6.4-8.2)
[2016-06-29 15:07] LABS: GLUCOSE COMMENT 1 Doctor Notified; GLUCOSE,POINT OF CARE 90 MG/DL (70-110)
[2016-06-29 16:17] LABS: GLUCOSE COMMENT 1 Doctor Notified; GLUCOSE,POINT OF CARE 159 MG/DL (70-110)
[2016-06-29] MEDS ORDERED: ONDANSETRON HCL 4 MG/2 ML VIAL IVP ONE (16:30)
[2016-06-29] MEDS ORDERED: PROMETHAZINE HCL 25 MG/ML VIAL IM ONE (17:15)
[2016-06-29] MEDS ORDERED: ENALAPRILAT DIHYDRATE 1.25 MG/ML 2 ML VIAL IVP ONE (17:45)
[2016-06-29] MEDS ORDERED: HydrALAZINE HCL 10 MG TABLET PO ONE (22:15)
[2016-06-29 22:23] VITALS: BP 169/104
[2016-06-30] VITALS (7 sets, daily range): BP systolic 126–160; BP diastolic 80–113
[2016-06-30] MEDS ORDERED: ONDANSETRON HCL 4 MG TABLET PO PRN ×2 (01:00)
[2016-06-30] MEDS ORDERED: ALBUTEROL SULFATE HFA 90 MCG/PUFF 8 GM INHALER IH PRN (01:00)
[2016-06-30] MEDS: DOCUSATE SODIUM 100 MG CAPSULE PO SCH ×3 (02:15→20:25)
[2016-06-30] MEDS ORDERED: ONDANSETRON HCL 4 MG/2 ML VIAL IVP PRN (02:15)
[2016-06-30] MEDS ORDERED: 0.9% SODIUM CHLORIDE 10 ML SYRINGE IVP PRN (02:15)
[2016-06-30] MEDS ORDERED: OxyCODONE HCL/ACETAMINOPHEN 5-325 MG TABLET PO PRN ×2 (02:15)
[2016-06-30] MEDS ORDERED: HydrALAZINE HCL 10 MG TABLET PO SCH ×2 (04:30→09:00)
[2016-06-30] MEDS: ONDANSETRON HCL 4 MG/2 ML VIAL IVP PRN ×2 (04:41→18:27)
[2016-06-30] MEDS: DILTIAZEM HCL CD 120 MG ER CAPSULE PO SCH ×2 (04:41→09:00)
[2016-06-30] MEDS ORDERED: DEXTROSE 50%-WATER 25 GM/50 ML SYRINGE IVP PRN (05:30)
[2016-06-30] MEDS ORDERED: INSULIN ASPART 100 UNITS/ML SQ PRN (05:30)
[2016-06-30 06:02] LABS: GLUCOSE,POINT OF CARE 108 MG/DL (70-110)
[2016-06-30 06:52] LABS: BASOPHILS % (AUTO) 0.7 % (0.0-2.0); EOSINOPHILS % (AUTO) 0.8 % (1.0-6.0); HEMATOCRIT 34.9 % (36-46); HEMOGLOBIN 11.3 g/dL (12.0-16.0); LYMPHOCYTES # (AUTO) 2.3 K/uL (1.0-4.8); LYMPHOCYTES % (AUTO) 29.1 % (22.0-44.0); MEAN CORPUSCULAR HEMOGLOBIN 26.8 pg (26.0-34.0); MEAN CORPUSCULAR HGB CONC 32.4 G/dL (31.0-37.0); MEAN CORPUSCULAR VOLUME 83 fL (80-100); MONOCYTES # (AUTO) 0.3 K/uL (0.1-1.0); MONOCYTES % (AUTO) 3.8 % (2.0-9.0); NEUTROPHILS # (AUTO) 5.3 K/uL (1.8-7.7); NEUTROPHILS % (AUTO) 65.6 % (40.0-70.0); PLATELET COUNT (AUTO) 326 K/uL (150-450); RED BLOOD CELL COUNT(AUTO) 4.23 MIL/uL (4.00-5.20); RED CELL DISTRIBUTION WIDTH 16.1 % (11.5-14.5); WHITE BLOOD COUNT (AUTO) 8.1 K/uL (4.5-11.0)
[2016-06-30 07:19] LABS: ALBUMIN 1.4 g/dL (3.4-5.0); BILIRUBIN,TOTAL 0.3 mg/dL (0.1-1.0); CALCIUM, TOTAL 8.7 mg/dL (8.8-10.5); CREATININE 4.45 mg/dL (0.60-1.30); POTASSIUM 5.7 mmol/L (3.5-5.1); TOTAL PROTEIN, SERUM 5.7 g/dL (6.4-8.2)
[2016-06-30] MEDS ORDERED: CALCIUM ACETATE 667 MG CAPSULE PO SCH (08:00)
[2016-06-30] MEDS: PANTOPRAZOLE SODIUM 40 MG/VIAL IVP SCH (08:50)
[2016-06-30] MEDS: METOCLOPRAMIDE HCL 5 MG TABLET PO SCH ×4 (08:51→20:24)
[2016-06-30] MEDS: HydrALAZINE HCL 10 MG TABLET PO SCH ×5 (08:51→23:52)
[2016-06-30] MEDS: CHOLECALCIFEROL (VIT D3) 1,000 UNITS TABLET PO SCH (08:55)
[2016-06-30 09:01] LABS: HEMOGLOBIN A1C 7.6 % (4.5-6.2)
[2016-06-30 10:56] LABS: RBC MORPHOLOGY COMMENT NORMAL RBC MORPH
[2016-06-30 12:13] LABS: GLUCOSE,POINT OF CARE 150 MG/DL (70-110)
[2016-06-30] MEDS: SODIUM CHLORIDE 0.9% 1,000 ML IV SCH (16:52)
[2016-06-30 17:27] LABS: GLUCOSE,POINT OF CARE 159 MG/DL (70-110)
[2016-06-30] MEDS ORDERED: SODIUM POLYSTYRENE SULFONATE 15 GM/60 ML SUSPENSION BOTTLE PO ONE (19:15)
[2016-07-01 00:08] VITALS: BP 124/70
[2016-07-01 03:57] LABS: GLUCOSE,POINT OF CARE 145 MG/DL (70-110)
[2016-07-01 04:49] VITALS: BP 137/70
[2016-07-01] MEDS: HydrALAZINE HCL 10 MG TABLET PO SCH ×3 (05:05→12:11)
[2016-07-01] MEDS: SODIUM CHLORIDE 0.9% 1,000 ML IV SCH (06:37)
[2016-07-01 06:59] LABS: BASOPHILS % (AUTO) 0.6 % (0.0-2.0); EOSINOPHILS % (AUTO) 4.3 % (1.0-6.0); HEMATOCRIT 32.2 % (36-46); HEMOGLOBIN 10.4 g/dL (12.0-16.0); LYMPHOCYTES # (AUTO) 4.1 K/uL (1.0-4.8); LYMPHOCYTES % (AUTO) 50.1 % (22.0-44.0); MEAN CORPUSCULAR HEMOGLOBIN 26.9 pg (26.0-34.0); MEAN CORPUSCULAR HGB CONC 32.4 G/dL (31.0-37.0); MEAN CORPUSCULAR VOLUME 83 fL (80-100); MONOCYTES # (AUTO) 0.3 K/uL (0.1-1.0); NEUTROPHILS # (AUTO) 3.4 K/uL (1.8-7.7); PLATELET COUNT (AUTO) 319 K/uL (150-450); RED BLOOD CELL COUNT(AUTO) 3.87 MIL/uL (4.00-5.20); RED CELL DISTRIBUTION WIDTH 15.4 % (11.5-14.5); WHITE BLOOD COUNT (AUTO) 8.2 K/uL (4.5-11.0)
[2016-07-01 07:17] LABS: CREATININE 4.12 mg/dL (0.60-1.30); MAGNESIUM 1.9 mg/dL (1.80-2.40); PHOSPHORUS 5.1 mg/dL (2.5-4.9); POTASSIUM 5.1 mmol/L (3.5-5.1)
[2016-07-01] MEDS: PANTOPRAZOLE SODIUM 40 MG/VIAL IVP SCH (07:46)
[2016-07-01 07:49] VITALS: BP 159/110
[2016-07-01 08:01] LABS: GLUCOSE,POINT OF CARE 129 MG/DL (70-110)
[2016-07-01] MEDS: DOCUSATE SODIUM 100 MG CAPSULE PO SCH (08:50)
[2016-07-01] MEDS: METOCLOPRAMIDE HCL 5 MG TABLET PO SCH ×2 (08:50→12:11)
[2016-07-01] MEDS: DILTIAZEM HCL CD 120 MG ER CAPSULE PO SCH (08:51)
[2016-07-01] MEDS: CHOLECALCIFEROL (VIT D3) 1,000 UNITS TABLET PO SCH (08:59)
[2016-07-01 11:42] LABS: GLUCOSE,POINT OF CARE 166 MG/DL (70-110)
[2016-07-01] MEDS ORDERED: HYDR-4172 PO (12:52)
[2016-07-01 13:09] VITALS: BP 155/96
== END 2016-07-01 13:10 | disposition home or self-care (01) | DRG 48 ==
LOC: EMS 09:05 → 6N 17:45
PROVIDERS: ADMIT Internal Medicine; ATTEND Internal Medicine
DX: E11.43 Type 2 diabetes mellitus with diabetic autonomic (poly)neuropathy (principal); E43 Unspecified severe protein-calorie malnutrition; N18.6 End stage renal disease; I12.0 Hypertensive chronic kidney disease with stage 5 chronic kidney disease or end stage renal disease; E11.649 Type 2 diabetes mellitus with hypoglycemia without coma; K31.84 Gastroparesis; E11.21 Type 2 diabetes mellitus with diabetic nephropathy; D63.1 Anemia in chronic kidney disease; E11.319 Type 2 diabetes mellitus with unspecified diabetic retinopathy without macular edema; E11.42 Type 2 diabetes mellitus with diabetic polyneuropathy; E87.1 Hypo-osmolality and hyponatremia; E11.22 Type 2 diabetes mellitus with diabetic chronic kidney disease; E87.5 Hyperkalemia; Z53.20 Procedure and treatment not carried out because of patient's decision for unspecified reasons; E11.65 Type 2 diabetes mellitus with hyperglycemia; Z90.49 Acquired absence of other specified parts of digestive tract; Z91.14 Patient's other noncompliance with medication regimen; Z99.2 Dependence on renal dialysis; Z79.899 Other long term (current) drug therapy; Z98.890 Other specified postprocedural states; Z68.26 Body mass index [BMI] 26.0-26.9, adult; Z83.3 Family history of diabetes mellitus
CPT/HCPCS: 82962; 83036; 83735; 84100; 96372; 96374; 96375; 99285; C9113; J1610; J2405; J2550; J3535; J7030

== ENCOUNTER 2016-07-31 13:50 | Inpatient (IN) | payer OTHER ==
[~2016-07-31] VITALS: Ht 162.6 cm; Wt 67.8 kg
[~2016-07-31 13:50] MED LIST changes: -CHOL100034 PO; +HYDR-4172 PO
[2016-07-31 14:02] LABS: GLUCOSE,POINT OF CARE 218 MG/DL (70-110)
[2016-07-31] MEDS ORDERED: FURO80 PO (14:34)
[2016-07-31] MEDS ORDERED: LISI-660 PO (14:34)
[2016-07-31 15:08] LABS: BASOPHILS % (AUTO) 0.4 % (0.0-2.0); EOSINOPHILS % (AUTO) 2.8 % (1.0-6.0); HEMATOCRIT 33.1 % (36-46); HEMOGLOBIN 10.8 g/dL (12.0-16.0); LYMPHOCYTES # (AUTO) 4.4 K/uL (1.0-4.8); LYMPHOCYTES % (AUTO) 43.2 % (22.0-44.0); MEAN CORPUSCULAR HEMOGLOBIN 27.1 pg (26.0-34.0); MEAN CORPUSCULAR HGB CONC 32.7 G/dL (31.0-37.0); MEAN CORPUSCULAR VOLUME 83 fL (80-100); MONOCYTES # (AUTO) 0.3 K/uL (0.1-1.0); MONOCYTES % (AUTO) 3.2 % (2.0-9.0); NEUTROPHILS # (AUTO) 5.2 K/uL (1.8-7.7); NEUTROPHILS % (AUTO) 50.4 % (40.0-70.0); PLATELET COUNT (AUTO) 328 K/uL (150-450); RED BLOOD CELL COUNT(AUTO) 3.99 MIL/uL (4.00-5.20); RED CELL DISTRIBUTION WIDTH 15.9 % (11.5-14.5); WHITE BLOOD COUNT (AUTO) 10.3 K/uL (4.5-11.0)
[2016-07-31 15:18] LABS: CALCIUM, TOTAL 8.4 mg/dL (8.8-10.5); CREATININE 5.7 mg/dL (0.60-1.30); POTASSIUM 5.5 mmol/L (3.5-5.1)
[2016-07-31 15:23] LABS: ALBUMIN 1.4 g/dL (3.4-5.0); BILIRUBIN,TOTAL 0.2 mg/dL (0.1-1.0); TOTAL PROTEIN, SERUM 5.6 g/dL (6.4-8.2)
[2016-07-31] MEDS ORDERED: ONDANSETRON HCL 4 MG/2 ML VIAL IVP PRN (16:00)
[2016-07-31] MEDS ORDERED: ACETAMINOPHEN 325 MG TABLET PO PRN ×2 (16:00→18:30)
[2016-07-31] MEDS ORDERED: 0.9% SODIUM CHLORIDE 10 ML SYRINGE IVP PRN (16:00)
[2016-07-31 16:07] LABS: APPEARANCE,URINE CLOUDY (CLEAR); GLUCOSE, URINE (UA) 500 mg/dL (NEGATIVE); KETONES,URINE NEGATIVE (NEGATIVE); LEUKOCYTE ESTERASE ,URINE NEGATIVE (NEGATIVE); OCCULT BLOOD,URINE MODERATE (NEGATIVE); PH,URINE 7.5 (5.0-8.0); PROTEIN,URINE SEE CONFIRM (NEGATIVE)
[2016-07-31] MEDS ORDERED: LISINOPRIL 10 MG TABLET PO ONE (16:15)
[2016-07-31] MEDS ORDERED: SODIUM CHLORIDE 0.9% 1,000 ML IV SCH (16:30)
[2016-07-31 16:45] VITALS: BP 160/106
[2016-07-31 16:54] LABS: SULFOSALICYLIC ACID,URINE 3+ (Negative)
[2016-07-31 16:56] LABS: ADD UA MICROSCOPIC YES; SQUAMOUS EPITHELIAL CELL,UR Moderate /LPF (None Seen)
[2016-07-31] MEDS ORDERED: ZOLPIDEM TARTRATE 10 MG TABLET PO PRN (18:30)
[2016-07-31] MEDS ORDERED: OxyCODONE HCL/ACETAMINOPHEN 5-325 MG TABLET PO PRN (18:30)
[2016-07-31 19:47] VITALS: BP 161/109
[2016-07-31] MEDS: ONDANSETRON HCL 4 MG/2 ML VIAL IVP PRN (20:06)
[2016-07-31 22:46] LABS: GLUCOSE COMMENT 1 Received Meds; GLUCOSE,POINT OF CARE 251 MG/DL (70-110)
[2016-07-31] MEDS ORDERED: DEXTROSE 50%-WATER 25 GM/50 ML SYRINGE IVP PRN (23:00)
[2016-07-31] MEDS ORDERED: HydrALAZINE HCL 20 MG/ML VIAL IVP PRN (23:00)
[2016-07-31 23:32] VITALS: BP 131/90
[2016-08-01] VITALS (12 sets, daily range): BP systolic 105–181; BP diastolic 55–111
[2016-08-01] MEDS: HEPARIN SODIUM,PORCINE 5,000 UNITS/ML VIAL SQ SCH ×4 (00:35→23:47)
[2016-08-01 04:57] LABS: GLUCOSE COMMENT 1 Received Meds; GLUCOSE,POINT OF CARE 187 MG/DL (70-110)
[2016-08-01 06:27] LABS: GLUCOSE COMMENT 1 Received Meds; GLUCOSE,POINT OF CARE 154 MG/DL (70-110)
[2016-08-01 06:48] LABS: BASOPHILS % (AUTO) 0.7 % (0.0-2.0); EOSINOPHILS % (AUTO) 3.6 % (1.0-6.0); HEMOGLOBIN 11.1 g/dL (12.0-16.0); LYMPHOCYTES % (AUTO) 49.5 % (22.0-44.0); MEAN CORPUSCULAR HGB CONC 32.5 G/dL (31.0-37.0); MEAN CORPUSCULAR VOLUME 83 fL (80-100); MONOCYTES # (AUTO) 0.3 K/uL (0.1-1.0); MONOCYTES % (AUTO) 3.3 % (2.0-9.0); NEUTROPHILS # (AUTO) 3.4 K/uL (1.8-7.7); NEUTROPHILS % (AUTO) 42.9 % (40.0-70.0); PLATELET COUNT (AUTO) 291 K/uL (150-450); RED CELL DISTRIBUTION WIDTH 15.9 % (11.5-14.5)
[2016-08-01 07:14] LABS: HEMOGLOBIN A1C 8.1 % (4.5-6.2)
[2016-08-01 07:16] LABS: ALBUMIN 1.4 g/dL (3.4-5.0); BILIRUBIN,TOTAL 0.2 mg/dL (0.1-1.0); CALCIUM, TOTAL 7.9 mg/dL (8.8-10.5); CREATININE 5.34 mg/dL (0.60-1.30); MAGNESIUM 1.5 mg/dL (1.80-2.40); PHOSPHORUS 5.3 mg/dL (2.5-4.9); POTASSIUM 4.5 mmol/L (3.5-5.1); TOTAL PROTEIN, SERUM 5.2 g/dL (6.4-8.2)
[2016-08-01] MEDS ORDERED: PANTOPRAZOLE SODIUM 40 MG DR TABLET PO SCH (09:00)
[2016-08-01] MEDS: ONDANSETRON HCL 4 MG/2 ML VIAL IVP PRN ×2 (10:04→20:44)
[2016-08-01 10:09] LABS: VITAMIN B12 LEVEL > 2000 pg/mL (211-911)
[2016-08-01] MEDS ORDERED: MAGNESIUM SULFATE 1 GM in DEXTROSE 5%-WATER 50 ML IV ONE (10:30)
[2016-08-01] MEDS ORDERED: ALBUMIN HUMAN 25%-25GM/100ML 100 ML IV ONE (10:30)
[2016-08-01] MEDS ORDERED: ERGOCALCIFEROL (VIT D2) 50,000 UNITS CAPSULE PO SCH (10:45)
[2016-08-01 12:07] LABS: GLUCOSE,POINT OF CARE 248 MG/DL (70-110)
[2016-08-01] MEDS: LABETALOL HCL 200 MG TABLET PO SCH ×2 (12:16→20:42)
[2016-08-01 16:57] LABS: PH, GASTRIC OKAY
[2016-08-01 16:59] LABS: OCCULT BLOOD,GASTRIC FLUID POSITIVE (NEGATIVE)
[2016-08-01] MEDS: MORPHINE SULFATE 2 MG/ML SYRINGE IVP PRN (17:51)
[2016-08-01] MEDS: INSULIN ASPART 100 UNITS/ML SQ PRN (18:15)
[2016-08-01] MEDS: PANTOPRAZOLE SODIUM 80 MG in SODIUM CHLORIDE 0.9% 500 ML IV SCH (18:25)
[2016-08-01] MEDS ORDERED: PANTOPRAZOLE SODIUM 40 MG/VIAL IVP SCH (21:00)
[2016-08-01 21:42] LABS: GLUCOSE,POINT OF CARE 222 MG/DL (70-110)
[2016-08-02] MEDS: INSULIN ASPART 100 UNITS/ML SQ PRN ×4 (01:25→20:28)
[2016-08-02 03:42] LABS: GLUCOSE COMMENT 1 Received Meds; GLUCOSE,POINT OF CARE 237 MG/DL (70-110)
[2016-08-02 04:41] VITALS: BP 143/94
[2016-08-02] MEDS: PANTOPRAZOLE SODIUM 80 MG in SODIUM CHLORIDE 0.9% 500 ML IV SCH ×3 (04:41→23:43)
[2016-08-02 06:13] LABS: BASOPHILS % (AUTO) 0.4 % (0.0-2.0); EOSINOPHILS % (AUTO) 1.2 % (1.0-6.0); HEMATOCRIT 28.9 % (36-46); HEMOGLOBIN 9.5 g/dL (12.0-16.0); LYMPHOCYTES # (AUTO) 4.3 K/uL (1.0-4.8); LYMPHOCYTES % (AUTO) 44.8 % (22.0-44.0); MEAN CORPUSCULAR HEMOGLOBIN 27.3 pg (26.0-34.0); MEAN CORPUSCULAR HGB CONC 32.8 G/dL (31.0-37.0); MEAN CORPUSCULAR VOLUME 83 fL (80-100); MONOCYTES # (AUTO) 0.3 K/uL (0.1-1.0); MONOCYTES % (AUTO) 3.2 % (2.0-9.0); NEUTROPHILS # (AUTO) 4.9 K/uL (1.8-7.7); NEUTROPHILS % (AUTO) 50.4 % (40.0-70.0); PLATELET COUNT (AUTO) 323 K/uL (150-450); RED BLOOD CELL COUNT(AUTO) 3.48 MIL/uL (4.00-5.20); RED CELL DISTRIBUTION WIDTH 16.2 % (11.5-14.5); WHITE BLOOD COUNT (AUTO) 9.6 K/uL (4.5-11.0)
[2016-08-02 06:49] LABS: ALBUMIN 1.8 g/dL (3.4-5.0); BILIRUBIN,TOTAL 0.5 mg/dL (0.1-1.0); CALCIUM, TOTAL 8.5 mg/dL (8.8-10.5); CREATININE 5.31 mg/dL (0.60-1.30); POTASSIUM 4.2 mmol/L (3.5-5.1); TOTAL PROTEIN, SERUM 5.4 g/dL (6.4-8.2)
[2016-08-02 07:37] VITALS: BP 160/100
[2016-08-02] MEDS: LABETALOL HCL 200 MG TABLET PO SCH ×2 (08:35→20:27)
[2016-08-02] MEDS: HEPARIN SODIUM,PORCINE 5,000 UNITS/ML VIAL SQ SCH ×3 (08:35→23:45)
[2016-08-02] MEDS: ONDANSETRON HCL 4 MG/2 ML VIAL IVP PRN ×2 (12:01→18:08)
[2016-08-02 12:10] VITALS: BP 151/98
[2016-08-02 15:34] VITALS: BP 157/100
[2016-08-02] MEDS: MORPHINE SULFATE 2 MG/ML SYRINGE IVP PRN (19:47)
[2016-08-02 19:48] VITALS: BP 129/57
[2016-08-02] MEDS: OXYGEN THERAPY IH SCH ×2 (20:00→20:27)
[2016-08-02 23:53] VITALS: BP 158/88
[2016-08-03] VITALS (7 sets, daily range): BP systolic 106–170; BP diastolic 67–115
[2016-08-03] MEDS: ONDANSETRON HCL 4 MG/2 ML VIAL IVP PRN ×3 (00:21→18:07)
[2016-08-03] MEDS: INSULIN ASPART 100 UNITS/ML SQ PRN ×3 (06:09→17:53)
[2016-08-03 06:34] LABS: BASOPHILS % (AUTO) 0.6 % (0.0-2.0); EOSINOPHILS % (AUTO) 2.9 % (1.0-6.0); HEMATOCRIT 27.1 % (36-46); HEMOGLOBIN 8.9 g/dL (12.0-16.0); LYMPHOCYTES # (AUTO) 4.1 K/uL (1.0-4.8); LYMPHOCYTES % (AUTO) 51.1 % (22.0-44.0); MEAN CORPUSCULAR HEMOGLOBIN 27.2 pg (26.0-34.0); MEAN CORPUSCULAR HGB CONC 32.8 G/dL (31.0-37.0); MEAN CORPUSCULAR VOLUME 83 fL (80-100); MONOCYTES # (AUTO) 0.3 K/uL (0.1-1.0); MONOCYTES % (AUTO) 3.8 % (2.0-9.0); NEUTROPHILS # (AUTO) 3.3 K/uL (1.8-7.7); NEUTROPHILS % (AUTO) 41.6 % (40.0-70.0); PLATELET COUNT (AUTO) 303 K/uL (150-450); RED BLOOD CELL COUNT(AUTO) 3.25 MIL/uL (4.00-5.20); RED CELL DISTRIBUTION WIDTH 16.6 % (11.5-14.5)
[2016-08-03 06:40] LABS: ALBUMIN 1.5 g/dL (3.4-5.0); BILIRUBIN,TOTAL 0.5 mg/dL (0.1-1.0); CALCIUM, TOTAL 7.9 mg/dL (8.8-10.5); CREATININE 5.03 mg/dL (0.60-1.30); MAGNESIUM 1.5 mg/dL (1.80-2.40); POTASSIUM 3.9 mmol/L (3.5-5.1); TOTAL PROTEIN, SERUM 4.6 g/dL (6.4-8.2)
[2016-08-03] MEDS: OXYGEN THERAPY IH SCH ×4 (08:00→20:35)
[2016-08-03] MEDS: PANTOPRAZOLE SODIUM 80 MG in SODIUM CHLORIDE 0.9% 500 ML IV SCH ×2 (08:09→22:36)
[2016-08-03] MEDS: HEPARIN SODIUM,PORCINE 5,000 UNITS/ML VIAL SQ SCH ×2 (08:22→16:00)
[2016-08-03] MEDS: LABETALOL HCL 200 MG TABLET PO SCH ×2 (08:22→22:35)
[2016-08-03] MEDS: METOCLOPRAMIDE HCL 5 MG/ML 2 ML VIAL IVP SCH ×2 (12:05→20:34)
[2016-08-03 13:22] LABS: GLUCOSE COMMENT 1 Received Meds; GLUCOSE,POINT OF CARE 238 MG/DL (70-110)
[2016-08-03 13:22] LABS: GLUCOSE COMMENT 1 Received Meds; GLUCOSE,POINT OF CARE 193 MG/DL (70-110)
[2016-08-03 13:22] LABS: GLUCOSE COMMENT 1 Received Meds; GLUCOSE,POINT OF CARE 200 MG/DL (70-110)
[2016-08-03] MEDS ORDERED: MAGNESIUM SULFATE 4 GM/WATER 100 ML IV ONE (16:00)
[2016-08-03] MEDS: MORPHINE SULFATE 2 MG/ML SYRINGE IVP PRN (18:07)
[2016-08-04] VITALS (7 sets, daily range): BP systolic 119–153; BP diastolic 75–117
[2016-08-04] MEDS: METOCLOPRAMIDE HCL 5 MG/ML 2 ML VIAL IVP SCH ×4 (04:39→17:46)
[2016-08-04] MEDS: PANTOPRAZOLE SODIUM 80 MG in SODIUM CHLORIDE 0.9% 500 ML IV SCH (05:37)
[2016-08-04 06:31] LABS: INR 0.9 (0.9-1.1)
[2016-08-04 06:32] LABS: BASOPHILS % (AUTO) 0.5 % (0.0-2.0); HEMOGLOBIN 8.9 g/dL (12.0-16.0); LYMPHOCYTES # (AUTO) 4.4 K/uL (1.0-4.8); LYMPHOCYTES % (AUTO) 50.2 % (22.0-44.0); MEAN CORPUSCULAR HEMOGLOBIN 27.2 pg (26.0-34.0); MEAN CORPUSCULAR HGB CONC 32.8 G/dL (31.0-37.0); MEAN CORPUSCULAR VOLUME 83 fL (80-100); MONOCYTES # (AUTO) 0.4 K/uL (0.1-1.0); MONOCYTES % (AUTO) 4.9 % (2.0-9.0); NEUTROPHILS # (AUTO) 3.7 K/uL (1.8-7.7); NEUTROPHILS % (AUTO) 41.4 % (40.0-70.0); PLATELET COUNT (AUTO) 301 K/uL (150-450); RED BLOOD CELL COUNT(AUTO) 3.26 MIL/uL (4.00-5.20); WHITE BLOOD COUNT (AUTO) 8.8 K/uL (4.5-11.0)
[2016-08-04 07:56] LABS: ALBUMIN 1.5 g/dL (3.4-5.0); BILIRUBIN,TOTAL 0.4 mg/dL (0.1-1.0); CALCIUM, TOTAL 7.9 mg/dL (8.8-10.5); CREATININE 4.83 mg/dL (0.60-1.30); MAGNESIUM 2.7 mg/dL (1.80-2.40); POTASSIUM 4.1 mmol/L (3.5-5.1); TOTAL PROTEIN, SERUM 4.7 g/dL (6.4-8.2)
[2016-08-04] MEDS: HEPARIN SODIUM,PORCINE 5,000 UNITS/ML VIAL SQ SCH ×3 (08:00→17:09)
[2016-08-04] MEDS: OXYGEN THERAPY IH SCH ×3 (08:00→20:27)
[2016-08-04] MEDS: ONDANSETRON HCL 4 MG/2 ML VIAL IVP PRN ×2 (09:19→22:10)
[2016-08-04] MEDS ORDERED: SODIUM CHLORIDE 0.9% 1,000 ML IV ONE ×2 (09:30→09:32)
[2016-08-04] MEDS ORDERED: HEPARIN SODIUM,PORCINE 5,000 UNITS/ML VIAL SQ ONE (09:34)
[2016-08-04] MEDS ORDERED: SODIUM CHLORIDE 0.9% 10 ML ONE (09:34)
[2016-08-04] MEDS ORDERED: LIDOCAINE HCL/PF 1% 30 ML VIAL ONE (09:35)
[2016-08-04] MEDS ORDERED: SODIUM CHLORIDE 0.9% 250 ML IV ONE (09:36)
[2016-08-04] MEDS ORDERED: FentaNYL CITRATE-PF 100 MCG/2 ML VIAL IVP PRN (11:45)
[2016-08-04] MEDS ORDERED: HYDROmorphone 2 MG/ML SYRINGE IVP PRN (11:45)
[2016-08-04] MEDS ORDERED: MEPERIDINE-PF 25 MG/ML SYRINGE IVP PRN (11:45)
[2016-08-04] MEDS ORDERED: HEPARIN SODIUM,PORCINE 1,000 UNITS/ML 10 ML VIAL IVP ONE (12:00)
[2016-08-04] MEDS ORDERED: 0.9% SODIUM CHLORIDE 10 ML VIAL IVP ONE (12:00)
[2016-08-04] MEDS ORDERED: FentaNYL CITRATE-PF 100 MCG/2 ML VIAL IVP ONE (12:00)
[2016-08-04] MEDS ORDERED: MIDAZOLAM HCL 2 MG/2 ML VIAL IVP ONE (12:00)
[2016-08-04] MEDS ORDERED: HYDROCODONE/ACETAMINOPHEN 5-325 MG TABLET PO PRN (12:15)
[2016-08-04 12:37] LABS: GLUCOSE COMMENT 1 Doctor Notified; GLUCOSE,POINT OF CARE 194 MG/DL (70-110)
[2016-08-04] MEDS: LABETALOL HCL 200 MG TABLET PO SCH ×2 (13:20→20:26)
[2016-08-04] MEDS: INSULIN ASPART 100 UNITS/ML SQ PRN ×2 (13:22→17:46)
[2016-08-04] MEDS: MORPHINE SULFATE 2 MG/ML SYRINGE IVP PRN (19:00)
[2016-08-04] MEDS ORDERED: OXYGEN THERAPY IH SCH (20:00)
[2016-08-04] MEDS: PANTOPRAZOLE SODIUM 40 MG/VIAL IVP SCH (20:26)
[2016-08-05] VITALS (7 sets, daily range): BP systolic 103–171; BP diastolic 57–102
[2016-08-05] MEDS: METOCLOPRAMIDE HCL 5 MG/ML 2 ML VIAL IVP SCH ×5 (00:37→23:55)
[2016-08-05] MEDS: HEPARIN SODIUM,PORCINE 5,000 UNITS/ML VIAL SQ SCH ×4 (00:37→23:53)
[2016-08-05 01:57] LABS: GLUCOSE,POINT OF CARE 202 MG/DL (70-110)
[2016-08-05 04:47] LABS: GLUCOSE COMMENT 1 Received Meds; GLUCOSE,POINT OF CARE 225 MG/DL (70-110)
[2016-08-05 04:47] LABS: GLUCOSE COMMENT 1 Received Meds; GLUCOSE,POINT OF CARE 142 MG/DL (70-110)
[2016-08-05 06:05] LABS: BASOPHILS % (AUTO) 0.5 % (0.0-2.0); HEMATOCRIT 26.9 % (36-46); HEMOGLOBIN 8.8 g/dL (12.0-16.0); LYMPHOCYTES # (AUTO) 3.8 K/uL (1.0-4.8); LYMPHOCYTES % (AUTO) 41.8 % (22.0-44.0); MEAN CORPUSCULAR HEMOGLOBIN 27.2 pg (26.0-34.0); MEAN CORPUSCULAR HGB CONC 32.6 G/dL (31.0-37.0); MEAN CORPUSCULAR VOLUME 83 fL (80-100); MONOCYTES # (AUTO) 0.3 K/uL (0.1-1.0); MONOCYTES % (AUTO) 3.7 % (2.0-9.0); NEUTROPHILS # (AUTO) 4.6 K/uL (1.8-7.7); PLATELET COUNT (AUTO) 289 K/uL (150-450); RED BLOOD CELL COUNT(AUTO) 3.24 MIL/uL (4.00-5.20); RED CELL DISTRIBUTION WIDTH 16.2 % (11.5-14.5)
[2016-08-05] MEDS: INSULIN ASPART 100 UNITS/ML SQ PRN ×4 (06:43→21:19)
[2016-08-05 07:08] LABS: ALBUMIN 1.5 g/dL (3.4-5.0); BILIRUBIN,TOTAL 0.2 mg/dL (0.1-1.0); CALCIUM, TOTAL 8.1 mg/dL (8.8-10.5); CREATININE 4.79 mg/dL (0.60-1.30); MAGNESIUM 2.3 mg/dL (1.80-2.40); PHOSPHORUS 5.3 mg/dL (2.5-4.9); TOTAL PROTEIN, SERUM 4.9 g/dL (6.4-8.2)
[2016-08-05] MEDS: LABETALOL HCL 200 MG TABLET PO SCH ×2 (08:04→20:41)
[2016-08-05] MEDS: PANTOPRAZOLE SODIUM 40 MG/VIAL IVP SCH ×2 (08:04→20:42)
[2016-08-05] MEDS: OXYGEN THERAPY IH SCH (08:04)
[2016-08-05] MEDS: EPOETIN ALFA 10,000 UNITS/ML VIAL SQ SCH (08:05)
[2016-08-05] MEDS: ONDANSETRON HCL 4 MG/2 ML VIAL IVP PRN (10:12)
[2016-08-05] MEDS: SODIUM CHLORIDE 0.9% 1,000 ML IV SCH (12:03)
[2016-08-06] MEDS: ONDANSETRON HCL 4 MG/2 ML VIAL IVP PRN ×2 (03:40→20:35)
[2016-08-06 04:42] VITALS: BP 152/86
[2016-08-06] MEDS: METOCLOPRAMIDE HCL 5 MG/ML 2 ML VIAL IVP SCH ×3 (05:56→17:05)
[2016-08-06] MEDS: INSULIN ASPART 100 UNITS/ML SQ PRN ×4 (05:59→21:48)
[2016-08-06 06:53] LABS: CALCIUM, TOTAL 7.7 mg/dL (8.8-10.5); CREATININE 4.55 mg/dL (0.60-1.30); MAGNESIUM 1.8 mg/dL (1.80-2.40); PHOSPHORUS 5.1 mg/dL (2.5-4.9); POTASSIUM 4.5 mmol/L (3.5-5.1)
[2016-08-06 06:54] LABS: BASOPHILS % (AUTO) 0.4 % (0.0-2.0); EOSINOPHILS % (AUTO) 2.7 % (1.0-6.0); HEMATOCRIT 26.3 % (36-46); HEMOGLOBIN 8.6 g/dL (12.0-16.0); LYMPHOCYTES # (AUTO) 3.1 K/uL (1.0-4.8); LYMPHOCYTES % (AUTO) 36.7 % (22.0-44.0); MEAN CORPUSCULAR HEMOGLOBIN 27.3 pg (26.0-34.0); MEAN CORPUSCULAR HGB CONC 32.9 G/dL (31.0-37.0); MEAN CORPUSCULAR VOLUME 83 fL (80-100); MONOCYTES # (AUTO) 0.3 K/uL (0.1-1.0); MONOCYTES % (AUTO) 3.6 % (2.0-9.0); NEUTROPHILS # (AUTO) 4.9 K/uL (1.8-7.7); NEUTROPHILS % (AUTO) 56.6 % (40.0-70.0); PLATELET COUNT (AUTO) 304 K/uL (150-450); RED BLOOD CELL COUNT(AUTO) 3.17 MIL/uL (4.00-5.20); RED CELL DISTRIBUTION WIDTH 16.3 % (11.5-14.5); WHITE BLOOD COUNT (AUTO) 8.6 K/uL (4.5-11.0)
[2016-08-06 07:26] LABS: GLUCOSE,POINT OF CARE 197 MG/DL (70-110)
[2016-08-06 07:33] VITALS: BP 186/96
[2016-08-06] MEDS: OXYGEN THERAPY IH SCH ×3 (07:57→20:35)
[2016-08-06] MEDS: HEPARIN SODIUM,PORCINE 5,000 UNITS/ML VIAL SQ SCH ×2 (07:57→17:04)
[2016-08-06] MEDS: SODIUM CHLORIDE 0.9% 1,000 ML IV SCH ×2 (07:57→17:05)
[2016-08-06] MEDS: LABETALOL HCL 200 MG TABLET PO SCH ×2 (07:58→20:35)
[2016-08-06] MEDS: PANTOPRAZOLE SODIUM 40 MG/VIAL IVP SCH ×2 (07:58→20:35)
[2016-08-06 11:18] VITALS: BP 154/94
[2016-08-06 15:24] VITALS: BP 149/91
[2016-08-06 19:44] VITALS: BP 160/91
[2016-08-07 00:02] VITALS: BP 152/96
[2016-08-07] MEDS: HEPARIN SODIUM,PORCINE 5,000 UNITS/ML VIAL SQ SCH ×2 (00:22→09:05)
[2016-08-07] MEDS: METOCLOPRAMIDE HCL 5 MG/ML 2 ML VIAL IVP SCH ×3 (00:39→11:52)
[2016-08-07 04:38] VITALS: BP 161/93
[2016-08-07 04:57] LABS: GLUCOSE,POINT OF CARE 161 MG/DL (70-110)
[2016-08-07] MEDS: INSULIN ASPART 100 UNITS/ML SQ PRN ×2 (05:46→11:55)
[2016-08-07 06:11] LABS: BASOPHILS % (AUTO) 0.5 % (0.0-2.0); EOSINOPHILS % (AUTO) 2.2 % (1.0-6.0); HEMATOCRIT 28.4 % (36-46); HEMOGLOBIN 9.2 g/dL (12.0-16.0); LYMPHOCYTES # (AUTO) 3.9 K/uL (1.0-4.8); LYMPHOCYTES % (AUTO) 43.8 % (22.0-44.0); MEAN CORPUSCULAR HEMOGLOBIN 27.3 pg (26.0-34.0); MEAN CORPUSCULAR HGB CONC 32.5 G/dL (31.0-37.0); MEAN CORPUSCULAR VOLUME 84 fL (80-100); MONOCYTES # (AUTO) 0.3 K/uL (0.1-1.0); MONOCYTES % (AUTO) 3.8 % (2.0-9.0); NEUTROPHILS # (AUTO) 4.4 K/uL (1.8-7.7); NEUTROPHILS % (AUTO) 49.7 % (40.0-70.0); PLATELET COUNT (AUTO) 341 K/uL (150-450); RED BLOOD CELL COUNT(AUTO) 3.38 MIL/uL (4.00-5.20); RED CELL DISTRIBUTION WIDTH 16.1 % (11.5-14.5); WHITE BLOOD COUNT (AUTO) 8.8 K/uL (4.5-11.0)
[2016-08-07 06:27] LABS: ALBUMIN 1.3 g/dL (3.4-5.0); BILIRUBIN,TOTAL 0.3 mg/dL (0.1-1.0); CALCIUM, TOTAL 8.1 mg/dL (8.8-10.5); CREATININE 4.33 mg/dL (0.60-1.30); POTASSIUM 4.2 mmol/L (3.5-5.1); TOTAL PROTEIN, SERUM 4.9 g/dL (6.4-8.2)
[2016-08-07 07:22] LABS: GLUCOSE,POINT OF CARE 171 MG/DL (70-110)
[2016-08-07 07:23] LABS: GLUCOSE COMMENT 1 Received Meds; GLUCOSE,POINT OF CARE 145 MG/DL (70-110)
[2016-08-07 07:27] LABS: GLUCOSE COMMENT 1 Received Meds; GLUCOSE,POINT OF CARE 201 MG/DL (70-110)
[2016-08-07 08:17] VITALS: BP 153/97
[2016-08-07] MEDS: EPOETIN ALFA 10,000 UNITS/ML VIAL SQ SCH (09:05)
[2016-08-07] MEDS: OXYGEN THERAPY IH SCH (09:05)
[2016-08-07] MEDS: LABETALOL HCL 200 MG TABLET PO SCH (09:05)
[2016-08-07] MEDS: PANTOPRAZOLE SODIUM 40 MG/VIAL IVP SCH (09:05)
[2016-08-07] MEDS: ONDANSETRON HCL 4 MG/2 ML VIAL IVP PRN (10:31)
[2016-08-07 11:26] LABS: GLUCOSE,POINT OF CARE 196 MG/DL (70-110)
[2016-08-07 12:00] VITALS: BP 123/85
[2016-08-07] MEDS ORDERED: CITRIC ACID/SODIUM CITRATE 30 ML SOLUTION UDCUP PO SCH (21:00)
[2016-08-10 04:22] LABS: GLUCOSE,POINT OF CARE 192 MG/DL (70-110)
[2016-08-10 04:22] LABS: GLUCOSE COMMENT 1 Received Meds; GLUCOSE,POINT OF CARE 249 MG/DL (70-110)
[2016-08-10 04:26] LABS: GLUCOSE COMMENT 1 Received Meds; GLUCOSE,POINT OF CARE 195 MG/DL (70-110)
[2016-08-10 04:26] LABS: GLUCOSE,POINT OF CARE 227 MG/DL (70-110)
[2016-08-21 16:44] LABS: GLUCOSE,POINT OF CARE 208 MG/DL (70-110)
[2016-08-21 16:44] LABS: GLUCOSE COMMENT 1 Received Meds; GLUCOSE,POINT OF CARE 234 MG/DL (70-110)
[2016-08-21 16:47] LABS: GLUCOSE COMMENT 1 Received Meds; GLUCOSE,POINT OF CARE 191 MG/DL (70-110)
[2016-08-21 16:48] LABS: GLUCOSE COMMENT 1 Received Meds; GLUCOSE,POINT OF CARE 183 MG/DL (70-110)
[2016-08-21 16:48] LABS: GLUCOSE,POINT OF CARE 157 MG/DL (70-110)
[2016-08-21 16:48] LABS: GLUCOSE COMMENT 1 Received Meds; GLUCOSE,POINT OF CARE 160 MG/DL (70-110)
[2016-08-21 16:48] LABS: GLUCOSE,POINT OF CARE 170 MG/DL (70-110)
== END 2016-08-07 14:25 | DRG 444 ==
LOC: EMS 13:51 → 6N 17:12 → 5S 08-01 14:05 → 5N 08-04 08:08
PROVIDERS: ADMIT Hospitalist; ATTEND Hospitalist
PROC: 03180ZD Bypass Left Brachial Artery to Upper Arm Vein, Open Approach (ICD-10-PCS; principal; 2016-08-04 10:45)
DX: N17.9 Acute kidney failure, unspecified (principal); K92.0 Hematemesis; K31.84 Gastroparesis; E11.21 Type 2 diabetes mellitus with diabetic nephropathy; E11.43 Type 2 diabetes mellitus with diabetic autonomic (poly)neuropathy; E88.09 Other disorders of plasma-protein metabolism, not elsewhere classified; N39.0 Urinary tract infection, site not specified; R56.9 Unspecified convulsions; E87.5 Hyperkalemia; D63.1 Anemia in chronic kidney disease; I12.9 Hypertensive chronic kidney disease with stage 1 through stage 4 chronic kidney disease, or unspecified chronic kidney disease; N18.9 Chronic kidney disease, unspecified; R80.9 Proteinuria, unspecified; E83.42 Hypomagnesemia; R00.0 Tachycardia, unspecified; E11.22 Type 2 diabetes mellitus with diabetic chronic kidney disease; E78.5 Hyperlipidemia, unspecified; Z91.14 Patient's other noncompliance with medication regimen; Z82.49 Family history of ischemic heart disease and other diseases of the circulatory system; Z90.49 Acquired absence of other specified parts of digestive tract; Z83.3 Family history of diabetes mellitus; Z88.8 Allergy status to other drugs, medicaments and biological substances
CPT/HCPCS: 81025; 82270; 82271; 82607; 82728; 82746; 82962; 83036; 83540; 83550; 83735; 84100; 87086; 96360; 97110; 97116; 97163; 97530; 97535; 99285; C9113; J0360; J0690; J0885; J1644; J2250; J2270; J2405; J2765; J3010; J3475; J3490; J7030; J7040; J7050; J7060; P9046

== ENCOUNTER 2016-09-29 10:23 | Inpatient (IN) | payer OTHER ==
[~2016-09-29] VITALS: Ht 162.6 cm; Wt 152.0 kg
[~2016-09-29 10:23] MED LIST changes: -ALBU8HFA IH; -DILT120C89 PO; +FURO80 PO; -HYDR-4172 PO; -INSU100V12 SQ; +LISI-660 PO; -METO5TAB95 PO; -ONDA4 PO; -PHOSLOC PO; -VITAD1000 PO
[2016-09-29] MEDS ORDERED: LABE200T PO (10:34)
[2016-09-29] MEDS ORDERED: ONDA-55 PO (10:34)
[2016-09-29 10:38] LABS: GLUCOSE,POINT OF CARE 127 MG/DL (70-110)
[2016-09-29] MEDS ORDERED: ONDANSETRON HCL 4 MG/2 ML VIAL IVP ONE (11:00)
[2016-09-29] MEDS ORDERED: SODIUM CHLORIDE 0.9% 1,000 ML IV ONE (11:00)
[2016-09-29 11:21] LABS: BASOPHILS % (AUTO) 0.4 % (0.0-2.0); EOSINOPHILS % (AUTO) 1.2 % (1.0-6.0); HEMATOCRIT 36.8 % (36-46); HEMOGLOBIN 11.8 g/dL (12.0-16.0); LYMPHOCYTES # (AUTO) 3.4 K/uL (1.0-4.8); LYMPHOCYTES % (AUTO) 32.5 % (22.0-44.0); MEAN CORPUSCULAR HEMOGLOBIN 26.8 pg (26.0-34.0); MEAN CORPUSCULAR HGB CONC 32.2 G/dL (31.0-37.0); MEAN CORPUSCULAR VOLUME 83 fL (80-100); MONOCYTES # (AUTO) 0.3 K/uL (0.1-1.0); MONOCYTES % (AUTO) 2.7 % (2.0-9.0); NEUTROPHILS # (AUTO) 6.7 K/uL (1.8-7.7); NEUTROPHILS % (AUTO) 63.2 % (40.0-70.0); PLATELET COUNT (AUTO) 446 K/uL (150-450); RED BLOOD CELL COUNT(AUTO) 4.42 MIL/uL (4.00-5.20); RED CELL DISTRIBUTION WIDTH 15.7 % (11.5-14.5); WHITE BLOOD COUNT (AUTO) 10.5 K/uL (4.5-11.0)
[2016-09-29 11:34] LABS: CALCIUM, TOTAL 9.2 mg/dL (8.8-10.5); CREATININE 7.86 mg/dL (0.60-1.30); POTASSIUM 3.7 mmol/L (3.5-5.1)
[2016-09-29 11:38] LABS: BILIRUBIN,TOTAL 0.4 mg/dL (0.1-1.0); TOTAL PROTEIN, SERUM 6.6 g/dL (6.4-8.2)
[2016-09-29] MEDS ORDERED: NITROGLYCERIN 2% (1 GM=INCH) PACKET TP ONE (12:15)
[2016-09-29] MEDS ORDERED: LABETALOL HCL 5 MG/ML 20 ML VIAL IVP ONE (13:15)
[2016-09-29] MEDS ORDERED: DEXTROSE 50%-WATER 25 GM/50 ML SYRINGE IVP PRN (13:30)
[2016-09-29] MEDS ORDERED: BISACODYL 10 MG RECTAL RECTAL SUPPOSITORY PR PRN (13:30)
[2016-09-29] MEDS ORDERED: ACETAMINOPHEN 325 MG TABLET PO PRN (13:30)
[2016-09-29] MEDS ORDERED: METOCLOPRAMIDE HCL 5 MG/ML 2 ML VIAL IVP ONE (14:00)
[2016-09-29] MEDS: VITAMIN B COMP/VIT C/FOLIC ACID CAPSULE PO SCH (14:28)
[2016-09-29 14:47] LABS: APPEARANCE,URINE CLOUDY (CLEAR); GLUCOSE, URINE (UA) 500 mg/dL (NEGATIVE); KETONES,URINE NEGATIVE (NEGATIVE); LEUKOCYTE ESTERASE ,URINE NEGATIVE (NEGATIVE); OCCULT BLOOD,URINE SMALL (NEGATIVE); PH,URINE 7.5 (5.0-8.0); PROTEIN,URINE SEE CONFIRM (NEGATIVE)
[2016-09-29 14:48] LABS: ADD UA MICROSCOPIC YES
[2016-09-29 14:55] LABS: SULFOSALICYLIC ACID,URINE 2+ (Negative)
[2016-09-29 14:56] LABS: RBC,URINE 0-2 /HPF (0-2); WBC,URINE 0-2 /HPF (0-5)
[2016-09-29 14:57] LABS: SQUAMOUS EPITHELIAL CELL,UR Many /LPF (None Seen)
[2016-09-29] MEDS: SODIUM CHLORIDE 0.9% 1,000 ML IV SCH (16:18)
[2016-09-29 18:05] VITALS: BP 162/94
[2016-09-29] MEDS: INSULIN ASPART 100 UNITS/ML SQ PRN (18:07)
[2016-09-29] MEDS ORDERED: 0.9% SODIUM CHLORIDE 10 ML SYRINGE IVP PRN (19:00)
[2016-09-29 19:52] VITALS: BP 132/73
[2016-09-29 19:58] LABS: GLUCOSE,POINT OF CARE 110 MG/DL (70-110)
[2016-09-29] MEDS: HEPARIN SODIUM,PORCINE 5,000 UNITS/ML VIAL SQ SCH (20:07)
[2016-09-29] MEDS: METOCLOPRAMIDE HCL 5 MG/ML 2 ML VIAL IVP PRN (20:07)
[2016-09-29] MEDS: DOCUSATE SODIUM 100 MG CAPSULE PO SCH (20:13)
[2016-09-29 22:03] LABS: GLUCOSE,POINT OF CARE 113 MG/DL (70-110)
[2016-09-30 00:12] VITALS: BP 159/91
[2016-09-30] MEDS: ONDANSETRON HCL 4 MG/2 ML VIAL IVP PRN ×2 (00:44→20:43)
[2016-09-30] MEDS ORDERED: LABETALOL HCL 200 MG TABLET PO ONE (00:45)
[2016-09-30 05:07] VITALS: BP 149/92
[2016-09-30] MEDS: SODIUM CHLORIDE 0.9% 1,000 ML IV SCH ×2 (05:29→20:42)
[2016-09-30 06:12] LABS: GLUCOSE,POINT OF CARE 112 MG/DL (70-110)
[2016-09-30 07:14] LABS: CALCIUM, TOTAL 7.8 mg/dL (8.8-10.5); CREATININE 7.26 mg/dL (0.60-1.30); POTASSIUM 3.4 mmol/L (3.5-5.1)
[2016-09-30 07:51] VITALS: BP 154/91
[2016-09-30] MEDS: PANTOPRAZOLE SODIUM 40 MG DR TABLET PO SCH (08:24)
[2016-09-30] MEDS: HEPARIN SODIUM,PORCINE 5,000 UNITS/ML VIAL SQ SCH ×2 (08:24→20:43)
[2016-09-30] MEDS: VITAMIN B COMP/VIT C/FOLIC ACID CAPSULE PO SCH (08:24)
[2016-09-30] MEDS: DOCUSATE SODIUM 100 MG CAPSULE PO SCH ×2 (08:24→20:50)
[2016-09-30] MEDS ORDERED: POTASSIUM CHLORIDE 20 MEQ ER TABLET PO ONE (08:30)
[2016-09-30 11:25] VITALS: BP 180/97
[2016-09-30 11:33] LABS: GLUCOSE,POINT OF CARE 162 MG/DL (70-110)
[2016-09-30] MEDS: INSULIN ASPART 100 UNITS/ML SQ PRN ×2 (12:31→20:43)
[2016-09-30 15:30] VITALS: BP 182/103
[2016-09-30 18:23] LABS: GLUCOSE,POINT OF CARE 133 MG/DL (70-110)
[2016-09-30 19:45] VITALS: BP 175/104
[2016-09-30] MEDS ORDERED: CloNIDine HCL 0.1 MG TABLET PO PRN (22:00)
[2016-09-30] MEDS: AmLODIPine BESYLATE 10 MG TABLET PO SCH (22:29)
[2016-09-30] MEDS: METOCLOPRAMIDE HCL 5 MG/ML 2 ML VIAL IVP PRN (22:30)
[2016-09-30] MEDS: LABETALOL HCL 200 MG TABLET PO SCH (23:38)
[2016-10-01] VITALS (7 sets, daily range): BP systolic 116–141; BP diastolic 64–88
[2016-10-01 05:18] LABS: GLUCOSE,POINT OF CARE 163 MG/DL (70-110)
[2016-10-01] MEDS: ONDANSETRON HCL 4 MG/2 ML VIAL IVP PRN (05:47)
[2016-10-01] MEDS: INSULIN ASPART 100 UNITS/ML SQ PRN ×2 (05:48→22:07)
[2016-10-01 06:23] LABS: GLUCOSE,POINT OF CARE 176 MG/DL (70-110)
[2016-10-01 06:57] LABS: CALCIUM, TOTAL 7.8 mg/dL (8.8-10.5); CREATININE 6.18 mg/dL (0.60-1.30); POTASSIUM 3.4 mmol/L (3.5-5.1)
[2016-10-01] MEDS: AmLODIPine BESYLATE 10 MG TABLET PO SCH (08:14)
[2016-10-01] MEDS: LABETALOL HCL 200 MG TABLET PO SCH ×2 (08:14→20:06)
[2016-10-01] MEDS: PANTOPRAZOLE SODIUM 40 MG DR TABLET PO SCH (08:14)
[2016-10-01] MEDS: VITAMIN B COMP/VIT C/FOLIC ACID CAPSULE PO SCH (08:14)
[2016-10-01] MEDS: DOCUSATE SODIUM 100 MG CAPSULE PO SCH ×2 (08:15→20:05)
[2016-10-01] MEDS: HEPARIN SODIUM,PORCINE 5,000 UNITS/ML VIAL SQ SCH ×2 (08:15→20:06)
[2016-10-01] MEDS ORDERED: POTASSIUM CHLORIDE 20 MEQ ER TABLET PO ONE (11:45)
[2016-10-01] MEDS: SODIUM CHLORIDE 0.9% 1,000 ML IV SCH (13:12)
[2016-10-01 13:17] LABS: GLUCOSE COMMENT 1 Received Meds; GLUCOSE,POINT OF CARE 134 MG/DL (70-110)
[2016-10-01] MEDS: METOCLOPRAMIDE HCL 5 MG/ML 2 ML VIAL IVP PRN (17:13)
[2016-10-01 17:17] LABS: GLUCOSE COMMENT 1 Received Meds; GLUCOSE,POINT OF CARE 140 MG/DL (70-110)
[2016-10-02 00:16] LABS: GLUCOSE COMMENT 1 Received Meds; GLUCOSE,POINT OF CARE 182 MG/DL (70-110)
[2016-10-02 04:44] VITALS: BP 143/84
[2016-10-02] MEDS: SODIUM CHLORIDE 0.9% 1,000 ML IV SCH (05:08)
[2016-10-02 06:38] LABS: BASOPHILS % (AUTO) 0.5 % (0.0-2.0); EOSINOPHILS % (AUTO) 3.2 % (1.0-6.0); HEMATOCRIT 24.2 % (36-46); HEMOGLOBIN 7.8 g/dL (12.0-16.0); LYMPHOCYTES # (AUTO) 5.5 K/uL (1.0-4.8); MEAN CORPUSCULAR HEMOGLOBIN 27.1 pg (26.0-34.0); MEAN CORPUSCULAR HGB CONC 32.1 G/dL (31.0-37.0); MEAN CORPUSCULAR VOLUME 85 fL (80-100); MONOCYTES # (AUTO) 0.4 K/uL (0.1-1.0); MONOCYTES % (AUTO) 3.8 % (2.0-9.0); NEUTROPHILS # (AUTO) 3.4 K/uL (1.8-7.7); NEUTROPHILS % (AUTO) 35.5 % (40.0-70.0); PLATELET COUNT (AUTO) 371 K/uL (150-450); RED BLOOD CELL COUNT(AUTO) 2.86 MIL/uL (4.00-5.20); RED CELL DISTRIBUTION WIDTH 15.3 % (11.5-14.5); WHITE BLOOD COUNT (AUTO) 9.7 K/uL (4.5-11.0)
[2016-10-02] MEDS: INSULIN ASPART 100 UNITS/ML SQ PRN (07:07)
[2016-10-02 07:12] LABS: GLUCOSE,POINT OF CARE 105 MG/DL (70-110)
[2016-10-02 07:32] LABS: ALBUMIN 1.4 g/dL (3.4-5.0); BILIRUBIN,TOTAL 0.4 mg/dL (0.1-1.0); CALCIUM, TOTAL 7.7 mg/dL (8.8-10.5); CREATININE 5.96 mg/dL (0.60-1.30); TOTAL PROTEIN, SERUM 4.6 g/dL (6.4-8.2)
[2016-10-02 08:25] VITALS: BP 125/63
[2016-10-02] MEDS: VITAMIN B COMP/VIT C/FOLIC ACID CAPSULE PO SCH (08:41)
[2016-10-02] MEDS: PANTOPRAZOLE SODIUM 40 MG DR TABLET PO SCH (08:41)
[2016-10-02] MEDS: AmLODIPine BESYLATE 10 MG TABLET PO SCH (08:41)
[2016-10-02] MEDS: LABETALOL HCL 200 MG TABLET PO SCH (08:41)
[2016-10-02] MEDS: HEPARIN SODIUM,PORCINE 5,000 UNITS/ML VIAL SQ SCH (08:41)
[2016-10-02] MEDS: DOCUSATE SODIUM 100 MG CAPSULE PO SCH ×2 (08:41→08:44)
[2016-10-05 22:11] LABS: OVA AND PARASITES EXAM Final report
[2016-10-06 05:28] LABS: ALBUMIN URINE (ELP24) 36.6 %; ALPHA-1 URINE (ELP24) 10.2 %; BETA URINE(ELP24) 22.8 %; GAMMA URINE(ELP24) 17.4 %; TOTAL PROTEIN URINE 1032.9 mg/dL (Not Estab.)
== END 2016-10-02 11:20 | disposition home or self-care (01) | DRG 460 ==
LOC: EMS 10:25 → 6N 17:22
PROVIDERS: ADMIT Internal Medicine; ATTEND Internal Medicine
DX: I12.0 Hypertensive chronic kidney disease with stage 5 chronic kidney disease or end stage renal disease (principal); E43 Unspecified severe protein-calorie malnutrition; N17.9 Acute kidney failure, unspecified; K31.84 Gastroparesis; E11.43 Type 2 diabetes mellitus with diabetic autonomic (poly)neuropathy; E11.21 Type 2 diabetes mellitus with diabetic nephropathy; Z68.43 Body mass index [BMI] 50.0-59.9, adult; E11.319 Type 2 diabetes mellitus with unspecified diabetic retinopathy without macular edema; N18.6 End stage renal disease; D63.8 Anemia in other chronic diseases classified elsewhere; E11.22 Type 2 diabetes mellitus with diabetic chronic kidney disease; E87.6 Hypokalemia; R19.7 Diarrhea, unspecified; Z79.899 Other long term (current) drug therapy; Z79.4 Long term (current) use of insulin; Z90.49 Acquired absence of other specified parts of digestive tract
CPT/HCPCS: 81050; 82570; 82575; 82962; 83970; 84156; 84166; 84300; 84540; 87045; 87177; 87324; 87449; 89055; 93005; 93971; 96361; 96374; 96375; 99285; J1644; J2405; J2765; J3490; J7030

== ENCOUNTER 2017-03-24 00:18 | Inpatient (IN) | payer OTHER ==
[~2017-03-24] VITALS: Ht 162.6 cm; Wt 67.2 kg
[2017-03-24] VITALS (7 sets, daily range): BP systolic 119–171; BP diastolic 67–98
[~2017-03-24 00:18] MED LIST changes: +AMLO-512 PO; +FOLI1CAP2 PO; +INSLAN SQ; +LABE200T PO; -LISI-660 PO; +LOSA25TA21 PO
[2017-03-24] MEDS ORDERED: DEXTROSE 50%-WATER 25 GM/50 ML SYRINGE IVP ONE ×2 (00:22→00:30)
[2017-03-24 00:51] LABS: BASOPHILS # (AUTO) 0.01 K/uL (0.00-0.20); BASOPHILS % (AUTO) 0.1 % (0.0-2.0); EOSINOPHILS # (AUTO) 0.07 K/uL (0.00-0.70); EOSINOPHILS % (AUTO) 0.57 % (1.0-6.0); HEMATOCRIT 41.5 % (36-46); HEMOGLOBIN 13.8 g/dL (12.0-16.0); LYMPHOCYTES # (AUTO) 1.5 K/uL (1.0-4.8); LYMPHOCYTES % (AUTO) 11.8 % (22.0-44.0); MEAN CORPUSCULAR HEMOGLOBIN 28.8 pg (26.0-34.0); MEAN CORPUSCULAR HGB CONC 33.2 G/dL (31.0-37.0); MEAN CORPUSCULAR VOLUME 87 fL (80-100); MONOCYTES # (AUTO) 0.2 K/uL (0.1-1.0); MONOCYTES % (AUTO) 1.3 % (2.0-9.0); NEUTROPHILS # (AUTO) 10.9 K/uL (1.8-7.7); NEUTROPHILS % (AUTO) 86.3 % (40.0-70.0); PLATELET COUNT (AUTO) 319 K/uL (150-450); RED BLOOD CELL COUNT(AUTO) 4.78 MIL/uL (4.00-5.20); RED CELL DISTRIBUTION WIDTH 14.7 % (11.5-14.5); WHITE BLOOD COUNT (AUTO) 12.6 K/uL (4.5-11.0)
[2017-03-24 00:56] LABS: ANION GAP 9 mmol/L (8-16); CALCIUM, TOTAL 9.4 mg/dL (8.8-10.5); CARBON DIOXIDE 29 mmol/L (22-29); CHLORIDE 100 mmol/L (98-107); CREATININE 6.06 mg/dL (0.60-1.30); GLOMERULAR FILTR. RATE CALC 8 mL/min (>60); POTASSIUM 3.7 mmol/L (3.5-5.1); SODIUM SERUM 138 mmol/L (136-145); UREA NITROGEN, BLOOD 28 mg/dL (7-18)
[2017-03-24 00:57] LABS: GLUCOSE,POINT OF CARE 149 MG/DL (70-110)
[2017-03-24 00:57] LABS: PROTHROMBIN TIME 10.7 SEC (9.4-11.6)
[2017-03-24 01:15] LABS: APPEARANCE,URINE CLEAR (CLEAR); GLUCOSE, URINE (UA) 500 mg/dL (NEGATIVE); KETONES,URINE NEGATIVE (NEGATIVE); LEUKOCYTE ESTERASE ,URINE NEGATIVE (NEGATIVE); OCCULT BLOOD,URINE TRACE (NEGATIVE); PH,URINE 7.5 (5.0-8.0); PROTEIN,URINE SEE CONFIRM (NEGATIVE)
[2017-03-24 01:18] LABS: ADD UA MICROSCOPIC YES
[2017-03-24 01:21] LABS: ALANINE AMINOTRANSFERASE 12 U/L (12-78); ALBUMIN 3.3 g/dL (3.4-5.0); ASPARTATE AMINOTRANSFERASE 16 U/L (15-37); BILIRUBIN,TOTAL 0.5 mg/dL (0.1-1.0); CREATINE KINASE MB 3.3 ng/mL (0-5); CREATINE KINASE, TOTAL 227 U/L (26-192); TOTAL PROTEIN, SERUM 7.1 g/dL (6.4-8.2)
[2017-03-24 01:23] LABS: GLUCOSE,POINT OF CARE 142 MG/DL (70-110)
[2017-03-24] MEDS ORDERED: FLUMAZENIL 0.1 MG/ML 5 ML VIAL IVP ONE (01:30)
[2017-03-24] MEDS ORDERED: NALOXONE HCL 1 MG/ML 2 ML SYG IVP ONE (01:30)
[2017-03-24 01:33] LABS: SULFOSALICYLIC ACID,URINE 3+ (Negative)
[2017-03-24 01:34] LABS: SQUAMOUS EPITHELIAL CELL,UR Rare /LPF (None Seen); WBC,URINE 0-2 /HPF (0-5)
[2017-03-24 01:51] LABS: ABG BASE EXCESS 1.4 mmol/L (-2.0-3.0); ABG OXYHEMOGLOBIN 95.4 % (94.0-100.0); ABG PCO2 35 mmHg (35-45); ABG PH 7.475 (7.350-7.450); TEMPERATURE, FAHRENHEIT, BG 97.1 FAHREN (96.0-98.6)
[2017-03-24 02:48] LABS: GLUCOSE COMMENT 1 Doctor Notified; GLUCOSE,POINT OF CARE 132 MG/DL (70-110)
[2017-03-24 03:04] LABS: REFLEX LACTIC ACID? YES YES
[2017-03-24] MEDS ORDERED: HYDROmorphone 2 MG/ML SYRINGE IVP ONE (03:15)
[2017-03-24] MEDS ORDERED: ONDANSETRON HCL 4 MG/2 ML VIAL IVP ONE (03:15)
[2017-03-24] MEDS ORDERED: PANTOPRAZOLE SODIUM 40 MG/VIAL IVP ONE (03:15)
[2017-03-24] MEDS ORDERED: 0.9% SODIUM CHLORIDE 10 ML SYRINGE IVP PRN ×2 (03:45→16:15)
[2017-03-24] MEDS ORDERED: CefTRIAXone 1 GM/DEXTROSE 50 ML IV ONE (03:45)
[2017-03-24] MEDS ORDERED: ACETAMINOPHEN 325 MG TABLET PO PRN (03:45)
[2017-03-24] MEDS ORDERED: ONDANSETRON HCL 4 MG/2 ML VIAL IVP PRN ×2 (03:45→16:15)
[2017-03-24 04:27] LABS: GLUCOSE,POINT OF CARE 113 MG/DL (70-110)
[2017-03-24] MEDS ORDERED: LABETALOL HCL 5 MG/ML 20 ML VIAL IVP ONE ×2 (04:35→04:45)
[2017-03-24 04:53] LABS: GLUCOSE COMMENT 1 Doctor Notified; GLUCOSE,POINT OF CARE 168 MG/DL (70-110)
[2017-03-24] MEDS ORDERED: LIDOCAINE HCL/PF 1% 2 ML VIAL ID PRN (15:00)
[2017-03-24] MEDS ORDERED: MANNITOL 25%-12.5 GM/50 ML VIAL IVP PRN (15:00)
[2017-03-24] MEDS ORDERED: OxyCODONE HCL/ACETAMINOPHEN 5-325 MG TABLET PO PRN ×2 (16:15)
[2017-03-24] MEDS ORDERED: MAGNESIUM HYDROXIDE SUSPENSION 30 ML UDCUP PO PRN (16:15)
[2017-03-24] MEDS ORDERED: VITAMIN B COMP/VIT C/FOLIC ACID CAPSULE PO SCH (16:15)
[2017-03-24] MEDS: VITAMIN B COMP/VIT C/FOLIC ACID CAPSULE PO SCH (18:15)
[2017-03-24] MEDS: PANTOPRAZOLE SODIUM 40 MG/VIAL IVP SCH (18:16)
[2017-03-24 20:12] LABS: GLUCOSE,POINT OF CARE 179 MG/DL (70-110)
[2017-03-24 20:12] LABS: GLUCOSE,POINT OF CARE 196 MG/DL (70-110)
[2017-03-24] MEDS ORDERED: SODIUM CHLORIDE 0.9% 100 ML ONE (20:35)
[2017-03-24] MEDS: CefTRIAXone 1 GM/DEXTROSE 50 ML IV SCH (20:38)
[2017-03-24] MEDS: FUROSEMIDE 80 MG TABLET PO SCH (20:40)
[2017-03-24] MEDS: LABETALOL HCL 200 MG TABLET PO SCH (20:40)
[2017-03-24] MEDS: DOCUSATE SODIUM 100 MG CAPSULE PO SCH (20:40)
[2017-03-25 02:17] LABS: GLUCOSE,POINT OF CARE 251 MG/DL (70-110)
[2017-03-25 03:11] VITALS: BP 143/91
[2017-03-25 06:39] LABS: BASOPHILS % (AUTO) 0.4 % (0.0-2.0); EOSINOPHILS % (AUTO) 2.1 % (1.0-6.0); HEMATOCRIT 34.1 % (36-46); HEMOGLOBIN 11.7 g/dL (12.0-16.0); LYMPHOCYTES # (AUTO) 3.3 K/uL (1.0-4.8); LYMPHOCYTES % (AUTO) 33.9 % (22.0-44.0); MEAN CORPUSCULAR HEMOGLOBIN 29.4 pg (26.0-34.0); MEAN CORPUSCULAR HGB CONC 34.3 G/dL (31.0-37.0); MEAN CORPUSCULAR VOLUME 86 fL (80-100); MONOCYTES # (AUTO) 0.5 K/uL (0.1-1.0); MONOCYTES % (AUTO) 5.4 % (2.0-9.0); NEUTROPHILS # (AUTO) 5.6 K/uL (1.8-7.7); NEUTROPHILS % (AUTO) 58.2 % (40.0-70.0); PLATELET COUNT (AUTO) 278 K/uL (150-450); RED BLOOD CELL COUNT(AUTO) 3.96 MIL/uL (4.00-5.20); RED CELL DISTRIBUTION WIDTH 14.4 % (11.5-14.5); WHITE BLOOD COUNT (AUTO) 9.6 K/uL (4.5-11.0)
[2017-03-25 06:54] LABS: CALCIUM, TOTAL 8.5 mg/dL (8.8-10.5); CREATININE 3.86 mg/dL (0.60-1.30); POTASSIUM 4.1 mmol/L (3.5-5.1)
[2017-03-25 07:53] VITALS: BP 162/88
[2017-03-25] MEDS: LOSARTAN POTASSIUM 25 MG TABLET PO SCH ×2 (08:12→09:00)
[2017-03-25] MEDS: LABETALOL HCL 200 MG TABLET PO SCH ×2 (08:12→20:50)
[2017-03-25] MEDS: PANTOPRAZOLE SODIUM 40 MG/VIAL IVP SCH (08:13)
[2017-03-25] MEDS: DOCUSATE SODIUM 100 MG CAPSULE PO SCH ×3 (08:13→20:54)
[2017-03-25] MEDS: VITAMIN B COMP/VIT C/FOLIC ACID CAPSULE PO SCH (08:13)
[2017-03-25] MEDS: AmLODIPine BESYLATE 10 MG TABLET PO SCH ×2 (08:13→09:00)
[2017-03-25] MEDS: FUROSEMIDE 80 MG TABLET PO SCH ×2 (08:13→20:50)
[2017-03-25] MEDS ORDERED: VANCOMYCIN HCL 1 GM/D5% WATER 200 ML IV ONE (08:45)
[2017-03-25] MEDS ORDERED: VANCOMYCIN HCL 1 GM/D5% WATER 200 ML IV PRN (10:15)
[2017-03-25 11:07] VITALS: BP 154/95
[2017-03-25] MEDS: ACETAMINOPHEN 325 MG TABLET PO PRN ×2 (11:22→18:08)
[2017-03-25 15:37] VITALS: BP 133/84
[2017-03-25] MEDS ORDERED: SODIUM CHLORIDE 0.9% 250 ML IV ONE (17:23)
[2017-03-25] MEDS: CefTRIAXone 1 GM/DEXTROSE 50 ML IV SCH (17:26)
[2017-03-25 19:25] VITALS: BP 143/82
[2017-03-25 23:51] VITALS: BP 138/85
[2017-03-26 03:54] VITALS: BP 139/72
[2017-03-26 06:44] LABS: BASOPHILS % (AUTO) 0.5 % (0.0-2.0); EOSINOPHILS % (AUTO) 3.9 % (1.0-6.0); HEMATOCRIT 33.7 % (36-46); HEMOGLOBIN 11.5 g/dL (12.0-16.0); LYMPHOCYTES # (AUTO) 3.5 K/uL (1.0-4.8); LYMPHOCYTES % (AUTO) 45.5 % (22.0-44.0); MEAN CORPUSCULAR HEMOGLOBIN 29.4 pg (26.0-34.0); MEAN CORPUSCULAR HGB CONC 34.2 G/dL (31.0-37.0); MEAN CORPUSCULAR VOLUME 86 fL (80-100); MONOCYTES # (AUTO) 0.5 K/uL (0.1-1.0); MONOCYTES % (AUTO) 6.4 % (2.0-9.0); NEUTROPHILS # (AUTO) 3.4 K/uL (1.8-7.7); NEUTROPHILS % (AUTO) 43.7 % (40.0-70.0); PLATELET COUNT (AUTO) 268 K/uL (150-450); RED BLOOD CELL COUNT(AUTO) 3.92 MIL/uL (4.00-5.20); RED CELL DISTRIBUTION WIDTH 14.3 % (11.5-14.5); WHITE BLOOD COUNT (AUTO) 7.7 K/uL (4.5-11.0)
[2017-03-26 07:07] VITALS: BP 157/89
[2017-03-26 07:08] LABS: CALCIUM, TOTAL 8.5 mg/dL (8.8-10.5); CREATININE 5.57 mg/dL (0.60-1.30); POTASSIUM 3.7 mmol/L (3.5-5.1)
[2017-03-26] MEDS: AmLODIPine BESYLATE 10 MG TABLET PO SCH (09:00)
[2017-03-26] MEDS ORDERED: MANNITOL 25%-12.5 GM/50 ML VIAL IVP PRN (10:30)
[2017-03-26 11:00] VITALS: BP 138/78
[2017-03-26] MEDS: VITAMIN B COMP/VIT C/FOLIC ACID CAPSULE PO SCH (13:33)
[2017-03-26] MEDS: PANTOPRAZOLE SODIUM 40 MG/VIAL IVP SCH (13:33)
[2017-03-26] MEDS: DOCUSATE SODIUM 100 MG CAPSULE PO SCH ×2 (13:33→20:52)
[2017-03-26] MEDS: FUROSEMIDE 80 MG TABLET PO SCH ×2 (13:33→20:50)
[2017-03-26] MEDS: LOSARTAN POTASSIUM 25 MG TABLET PO SCH (13:34)
[2017-03-26] MEDS: LABETALOL HCL 200 MG TABLET PO SCH ×2 (13:34→20:50)
[2017-03-26 15:44] VITALS: BP 143/86
[2017-03-26] MEDS ORDERED: DEXTROSE 50%-WATER 25 GM/50 ML SYRINGE IVP PRN (18:00)
[2017-03-26] MEDS ORDERED: INSULIN ASPART 100 UNITS/ML SQ ONE (18:00)
[2017-03-26 18:09] LABS: GLUCOSE,POINT OF CARE 332 MG/DL (70-110)
[2017-03-26 18:09] LABS: GLUCOSE,POINT OF CARE 254 MG/DL (70-110)
[2017-03-26 18:09] LABS: GLUCOSE,POINT OF CARE 168 MG/DL (70-110)
[2017-03-26 18:09] LABS: GLUCOSE,POINT OF CARE 234 MG/DL (70-110)
[2017-03-26 18:09] LABS: GLUCOSE,POINT OF CARE 214 MG/DL (70-110)
[2017-03-26 19:42] VITALS: BP 118/68
[2017-03-26 19:53] LABS: GLUCOSE,POINT OF CARE 136 MG/DL (70-110)
[2017-03-27] VITALS (7 sets, daily range): BP systolic 133–158; BP diastolic 55–92
[2017-03-27] MEDS ORDERED: VANCOMYCIN HCL 1 GM/D5% WATER 200 ML IV ONE (06:00)
[2017-03-27] MEDS: INSULIN ASPART 100 UNITS/ML SQ PRN ×4 (06:23→20:40)
[2017-03-27 06:27] LABS: BASOPHILS % (AUTO) 0.6 % (0.0-2.0); EOSINOPHILS % (AUTO) 4.2 % (1.0-6.0); HEMATOCRIT 34.5 % (36-46); HEMOGLOBIN 11.8 g/dL (12.0-16.0); LYMPHOCYTES # (AUTO) 3.4 K/uL (1.0-4.8); LYMPHOCYTES % (AUTO) 45.8 % (22.0-44.0); MEAN CORPUSCULAR HEMOGLOBIN 29.5 pg (26.0-34.0); MEAN CORPUSCULAR HGB CONC 34.3 G/dL (31.0-37.0); MEAN CORPUSCULAR VOLUME 86 fL (80-100); MONOCYTES # (AUTO) 0.5 K/uL (0.1-1.0); MONOCYTES % (AUTO) 6.5 % (2.0-9.0); NEUTROPHILS # (AUTO) 3.2 K/uL (1.8-7.7); NEUTROPHILS % (AUTO) 42.9 % (40.0-70.0); PLATELET COUNT (AUTO) 224 K/uL (150-450); RED BLOOD CELL COUNT(AUTO) 4.01 MIL/uL (4.00-5.20); RED CELL DISTRIBUTION WIDTH 14.3 % (11.5-14.5); WHITE BLOOD COUNT (AUTO) 7.5 K/uL (4.5-11.0)
[2017-03-27] MEDS: VITAMIN B COMP/VIT C/FOLIC ACID CAPSULE PO SCH (08:36)
[2017-03-27] MEDS: FUROSEMIDE 80 MG TABLET PO SCH ×2 (08:36→20:32)
[2017-03-27] MEDS: PANTOPRAZOLE SODIUM 40 MG/VIAL IVP SCH (08:36)
[2017-03-27] MEDS: AmLODIPine BESYLATE 10 MG TABLET PO SCH (08:37)
[2017-03-27] MEDS: LOSARTAN POTASSIUM 25 MG TABLET PO SCH (08:37)
[2017-03-27] MEDS: LABETALOL HCL 200 MG TABLET PO SCH ×2 (08:37→20:32)
[2017-03-27] MEDS: DOCUSATE SODIUM 100 MG CAPSULE PO SCH ×2 (08:37→20:33)
[2017-03-28 00:28] LABS: GLUCOSE COMMENT 1 Received Meds; GLUCOSE,POINT OF CARE 210 MG/DL (70-110)
[2017-03-28 00:28] LABS: GLUCOSE COMMENT 1 Received Meds; GLUCOSE,POINT OF CARE 404 MG/DL (70-110)
[2017-03-28 00:28] LABS: GLUCOSE,POINT OF CARE 170 MG/DL (70-110)
[2017-03-28 00:28] LABS: GLUCOSE COMMENT 1 Received Meds; GLUCOSE,POINT OF CARE 299 MG/DL (70-110)
[2017-03-28 04:17] VITALS: BP 152/85
[2017-03-28] MEDS: INSULIN ASPART 100 UNITS/ML SQ PRN ×2 (06:55→11:43)
[2017-03-28 07:10] LABS: BASOPHILS % (AUTO) 0.6 % (0.0-2.0); EOSINOPHILS % (AUTO) 4.5 % (1.0-6.0); HEMATOCRIT 35.8 % (36-46); HEMOGLOBIN 12.2 g/dL (12.0-16.0); LYMPHOCYTES # (AUTO) 3.1 K/uL (1.0-4.8); LYMPHOCYTES % (AUTO) 37.4 % (22.0-44.0); MEAN CORPUSCULAR HEMOGLOBIN 29.2 pg (26.0-34.0); MEAN CORPUSCULAR VOLUME 86 fL (80-100); MONOCYTES # (AUTO) 0.4 K/uL (0.1-1.0); MONOCYTES % (AUTO) 4.8 % (2.0-9.0); NEUTROPHILS # (AUTO) 4.3 K/uL (1.8-7.7); NEUTROPHILS % (AUTO) 52.7 % (40.0-70.0); PLATELET COUNT (AUTO) 226 K/uL (150-450); RED BLOOD CELL COUNT(AUTO) 4.17 MIL/uL (4.00-5.20); RED CELL DISTRIBUTION WIDTH 14.7 % (11.5-14.5); WHITE BLOOD COUNT (AUTO) 8.2 K/uL (4.5-11.0)
[2017-03-28 07:26] VITALS: BP 137/87
[2017-03-28 07:54] LABS: CALCIUM, TOTAL 9.2 mg/dL (8.8-10.5); CREATININE 6.42 mg/dL (0.60-1.30); POTASSIUM 3.5 mmol/L (3.5-5.1)
[2017-03-28 08:13] LABS: GLUCOSE COMMENT 1 Received Meds; GLUCOSE,POINT OF CARE 315 MG/DL (70-110)
[2017-03-28 08:18] LABS: GLUCOSE COMMENT 1 Received Meds; GLUCOSE,POINT OF CARE 238 MG/DL (70-110)
[2017-03-28] MEDS: PANTOPRAZOLE SODIUM 40 MG/VIAL IVP SCH (08:32)
[2017-03-28] MEDS: LABETALOL HCL 200 MG TABLET PO SCH (08:33)
[2017-03-28] MEDS: FUROSEMIDE 80 MG TABLET PO SCH (08:33)
[2017-03-28] MEDS: LOSARTAN POTASSIUM 25 MG TABLET PO SCH (08:33)
[2017-03-28] MEDS: DOCUSATE SODIUM 100 MG CAPSULE PO SCH (08:34)
[2017-03-28] MEDS: VITAMIN B COMP/VIT C/FOLIC ACID CAPSULE PO SCH (08:34)
[2017-03-28] MEDS: AmLODIPine BESYLATE 10 MG TABLET PO SCH (10:42)
[2017-03-28 11:17] VITALS: BP 138/83
[2017-03-28] MEDS ORDERED: FOLI1CAP2 PO (13:51)
[2017-03-28] MEDS ORDERED: VANC1PLA10 (14:00)
[2017-03-28 14:28] LABS: GLUCOSE COMMENT 1 Received Meds; GLUCOSE,POINT OF CARE 240 MG/DL (70-110)
[2017-03-29 07:53] LABS: GLUCOSE COMMENT 1 Received Meds; GLUCOSE,POINT OF CARE 247 MG/DL (70-110)
== END 2017-03-28 17:55 | disposition home or self-care (01) | DRG 720 ==
LOC: EMS 00:18 → 5S 03:30
PROVIDERS: ADMIT Internal Medicine; ATTEND Internal Medicine
PROC: 5A1D70Z Performance of Urinary Filtration, Intermittent, Less than 6 Hours Per Day (ICD-10-PCS; principal; 2017-03-24)
PROC: 5A1D70Z Performance of Urinary Filtration, Intermittent, Less than 6 Hours Per Day (ICD-10-PCS; 2017-03-26)
DX: A41.89 Other specified sepsis (principal); G93.41 Metabolic encephalopathy; E11.21 Type 2 diabetes mellitus with diabetic nephropathy; E44.0 Moderate protein-calorie malnutrition; K31.84 Gastroparesis; I12.0 Hypertensive chronic kidney disease with stage 5 chronic kidney disease or end stage renal disease; E11.43 Type 2 diabetes mellitus with diabetic autonomic (poly)neuropathy; E87.1 Hypo-osmolality and hyponatremia; N18.6 End stage renal disease; D64.9 Anemia, unspecified; R41.82 Altered mental status, unspecified; B95.8 Unspecified staphylococcus as the cause of diseases classified elsewhere; E11.22 Type 2 diabetes mellitus with diabetic chronic kidney disease; E11.319 Type 2 diabetes mellitus with unspecified diabetic retinopathy without macular edema; E11.649 Type 2 diabetes mellitus with hypoglycemia without coma; E11.65 Type 2 diabetes mellitus with hyperglycemia; E21.3 Hyperparathyroidism, unspecified; B96.89 Other specified bacterial agents as the cause of diseases classified elsewhere; Z79.4 Long term (current) use of insulin; Z82.49 Family history of ischemic heart disease and other diseases of the circulatory system; Z83.3 Family history of diabetes mellitus; Z99.2 Dependence on renal dialysis
CPT/HCPCS: 51702; 70450; 82805; 82962; 83605; 87040; 87081; 87340; 90935; 93005; 93306; 93990; 96365; 96375; 99291; C9113; G0480; J0696; J1170; J1815; J2310; J2405; J3370; J3490; J7050

== ENCOUNTER 2018-08-19 21:55 | Inpatient (IN) | payer OTHER ==
[~2018-08-19] VITALS: Ht 162.6 cm; Wt 73.6 kg
[~2018-08-19 21:55] MED LIST changes: -INSLAN SQ; -LABE200T PO; +LABE200T5 PO; -LOSA25TA21 PO; +VANC1PLA10 IV
[2018-08-19] MEDS ORDERED: ATOR20TA86 PO (22:05)
[2018-08-19] MEDS ORDERED: ONDA4 PO (22:05)
[2018-08-19 22:09] LABS: GLUCOSE,POINT OF CARE > 600 MG/DL (70-110)
[2018-08-19 22:36] LABS: BASOPHILS % (AUTO) 1.1 % (0.0-2.0); EOSINOPHILS % (AUTO) 3.2 % (1.0-6.0); HEMATOCRIT 30.3 % (36-46); HEMOGLOBIN 9.9 g/dL (12.0-16.0); LYMPHOCYTES # (AUTO) 1.8 K/uL (1.0-4.8); LYMPHOCYTES % (AUTO) 31.1 % (22.0-44.0); MEAN CORPUSCULAR HEMOGLOBIN 29.6 pg (26.0-34.0); MEAN CORPUSCULAR HGB CONC 32.7 G/dL (31.0-37.0); MEAN CORPUSCULAR VOLUME 90 fL (80-100); MONOCYTES # (AUTO) 0.4 K/uL (0.1-1.0); MONOCYTES % (AUTO) 6.2 % (2.0-9.0); NEUTROPHILS # (AUTO) 3.3 K/uL (1.8-7.7); NEUTROPHILS % (AUTO) 58.4 % (40.0-70.0); PLATELET COUNT (AUTO) 274 K/uL (150-450); RED BLOOD CELL COUNT(AUTO) 3.36 MIL/uL (4.00-5.20); RED CELL DISTRIBUTION WIDTH 14.2 % (11.5-14.5)
[2018-08-19 23:13] LABS: ALBUMIN 3.7 g/dL (3.4-5.0); BILIRUBIN,TOTAL 0.8 mg/dL (0.1-1.0); CALCIUM, TOTAL 9.6 mg/dL (8.8-10.5); CREATININE 4.85 mg/dL (0.60-1.30); POTASSIUM 4.5 mmol/L (3.5-5.1); TOTAL PROTEIN, SERUM 7.9 g/dL (6.4-8.2)
[2018-08-19] MEDS ORDERED: INSULIN REGULAR, HUMAN 100 UNITS/ML IVP ONE (23:45)
[2018-08-20] MEDS ORDERED: MORPHINE SULFATE 2 MG/ML SYRINGE IVP PRN
[2018-08-20] MEDS ORDERED: ZOLPIDEM TARTRATE 5 MG TABLET PO PRN
[2018-08-20] MEDS ORDERED: MAGNESIUM HYDROXIDE SUSPENSION 30 ML UDCUP PO PRN
[2018-08-20] MEDS ORDERED: ONDANSETRON HCL 4 MG/2 ML VIAL IVP PRN ×2
[2018-08-20] MEDS ORDERED: HYDROCODONE/ACETAMINOPHEN 5-325 MG TABLET PO PRN
[2018-08-20] MEDS ORDERED: ONDANSETRON HCL 4 MG TABLET PO PRN
[2018-08-20] MEDS ORDERED: BISACODYL 10 MG RECTAL RECTAL SUPPOSITORY PR PRN
[2018-08-20] MEDS ORDERED: DEXTROSE 50%-WATER 25 GM/50 ML SYRINGE IVP PRN
[2018-08-20] MEDS ORDERED: 0.9% SODIUM CHLORIDE 10 ML SYRINGE IVP PRN
[2018-08-20] MEDS ORDERED: ACETAMINOPHEN 325 MG TABLET PO PRN ×2
[2018-08-20 00:14] LABS: GLUCOSE,POINT OF CARE 322 MG/DL (70-110)
[2018-08-20 00:49] LABS: GLUCOSE,POINT OF CARE 173 MG/DL (70-110)
[2018-08-20 01:40] VITALS: BP 155/91
[2018-08-20 05:11] VITALS: BP 141/72
[2018-08-20] MEDS: INSULIN LISPRO 100 UNITS/ML SQ PRN ×2 (06:15→11:23)
[2018-08-20 07:58] VITALS: BP 154/89
[2018-08-20] MEDS: HEPARIN SODIUM,PORCINE 5,000 UNITS/ML VIAL SQ SCH ×3 (08:00→08:38)
[2018-08-20] MEDS: PANTOPRAZOLE SODIUM 40 MG DR TABLET PO SCH ×2 (08:37→08:42)
[2018-08-20] MEDS: DOCUSATE SODIUM 100 MG CAPSULE PO SCH ×2 (08:37→08:42)
[2018-08-20] MEDS ORDERED: AmLODIPine BESYLATE 10 MG TABLET PO SCH (09:00)
[2018-08-20] MEDS ORDERED: LABETALOL HCL 200 MG TABLET PO SCH (09:00)
[2018-08-20] MEDS ORDERED: ATORVASTATIN CALCIUM 20 MG TABLET PO SCH (09:00)
[2018-08-20] MEDS ORDERED: INSULIN GLARGINE,HUM.REC.ANLOG 100 UNITS/ML SQ SCH (09:00)
[2018-08-20] MEDS ORDERED: FUROSEMIDE 80 MG TABLET PO SCH (09:00)
[2018-08-20 09:44] LABS: GLUCOMETER DEV NAME(LOC) 5S.1; GLUCOSE,POINT OF CARE 113 MG/DL (70-110)
[2018-08-20 09:44] LABS: GLUCOMETER DEV NAME(LOC) 5S.1; GLUCOSE,POINT OF CARE 230 MG/DL (70-110)
[2018-08-20 09:44] LABS: GLUCOMETER DEV NAME(LOC) 5S.1; GLUCOSE,POINT OF CARE 51 MG/DL (70-110)
[2018-08-20 09:44] LABS: GLUCOMETER DEV NAME(LOC) 5N.2; GLUCOSE,POINT OF CARE 164 MG/DL (70-110)
[2018-08-20 09:44] LABS: GLUCOMETER DEV NAME(LOC) 5N.2; GLUCOSE,POINT OF CARE 58 MG/DL (70-110)
[2018-08-20 09:44] LABS: GLUCOMETER DEV NAME(LOC) 5N.2; GLUCOSE,POINT OF CARE 45 MG/DL (70-110)
[2018-08-20] MEDS ORDERED: INSLAN SQ (10:43)
[2018-08-20 11:50] VITALS: BP 134/86
[2018-08-20 18:05] LABS: GLUCOMETER DEV NAME(LOC) 5S.1; GLUCOSE,POINT OF CARE 68 MG/DL (70-110)
[2018-08-20 18:05] LABS: GLUCOMETER DEV NAME(LOC) 5S.1; GLUCOSE,POINT OF CARE 175 MG/DL (70-110)
[2018-08-21] MEDS ORDERED: VITAMIN B COMP/VIT C/FOLIC ACID CAPSULE PO SCH (09:00)
== END 2018-08-20 13:00 | disposition home or self-care (01) | DRG 425 ==
LOC: EMS 21:57 → 5N 23:59
PROVIDERS: ADMIT Internal Medicine; ATTEND Internal Medicine
DX: E87.5 Hyperkalemia (principal); E11.22 Type 2 diabetes mellitus with diabetic chronic kidney disease; I12.0 Hypertensive chronic kidney disease with stage 5 chronic kidney disease or end stage renal disease; E87.1 Hypo-osmolality and hyponatremia; E11.65 Type 2 diabetes mellitus with hyperglycemia; D64.9 Anemia, unspecified; E78.5 Hyperlipidemia, unspecified; N18.6 End stage renal disease; Z79.899 Other long term (current) drug therapy; Z99.2 Dependence on renal dialysis
CPT/HCPCS: 83036; 87081; 93005; 96374; G0378; J1644; J1815